=== PATIENT | female | born 1950 | race African-American/Black ===

== ENCOUNTER 2022-10-02 14:34 | Observation (INO) ==
--- NOTE | 2022-10-02 15:47 | DR.UPDATE ---
H&P UPDATE Review Yes Any changes to H&P?: No
[2022-10-02 16:58] VITALS: BMI 25.6
[2022-10-02] MEDS ORDERED: NS 250 ML IV 250 ML IV ONE (17:09)
[2022-10-02 17:40] LABS: BASOPHILS % (AUTO) 0.8 % (0.2-1.0); EOSINOPHILS # (AUTO) 0.2 x10^3/uL (0.0-0.2); EOSINOPHILS % (AUTO) 3.3 % (0.9-2.9); HEMATOCRIT 33.8 % (36.0-47.0); HEMOGLOBIN 11.4 g/dL (12.0-16.0); LYMPHOCYTES # (AUTO) 1.5 X10^3/uL (1.3-2.9); LYMPHOCYTES % (AUTO) 29.2 % (21.0-51.0); MEAN CORPUSCULAR HEMOGLOBIN 27.8 pg (27.0-34.0); MEAN CORPUSCULAR HGB CONC 33.6 g/dL (33.0-35.0); MEAN CORPUSCULAR VOLUME 82.8 fL (80.0-100.0); MEAN PLATELET VOLUME 7.8 fL (7.4-11.0); MONOCYTES # (AUTO) 0.6 x10^3/uL (0.3-0.8); MONOCYTES % (AUTO) 10.9 % (0.0-13.0); NEUTROPHILS # (AUTO) 2.9 x10^3/uL (2.2-4.8); NEUTROPHILS % (AUTO) 55.8 % (42.0-75.0); PLATELET COUNT 222 X10^3/uL (150.0-450.0); RED BLOOD COUNT 4.09 X10^6/uL (3.5-5.4); RED CELL DISTRIBUTION WIDTH 14.9 % (11.6-16.5); WHITE BLOOD COUNT 5.2 X10^3/uL (3.6-10.0)
[2022-10-02] MEDS: LR 1,000 ML IV 1,000 ML IV SCH (17:47)
[2022-10-02] MEDS: ZOSYN VIAL 3.375 GRAMS 3.375 G in NS 100 ML IV 100 ML IV SCH ×2 (17:47→21:04)
[2022-10-02 17:49] LABS: BLOOD UREA NITROGEN 12 mg/dL (7-18); CALCIUM 8.6 mg/dL (8.5-10.1); CARBON DIOXIDE 26.5 mmol/L (21-32); CHLORIDE 103 mmol/L (98-107); CREATININE 0.98 mg/dL (0.55-1.02); GLUCOSE 87 mg/dL (65-99); SODIUM 137 mmol/L (136-145); eGFR NON BLACK RACES 59 (>60)
[2022-10-02] MEDS ORDERED: PROVENTIL NEB TX 0.083% 2.5MG/ 3ML NEB PRN (18:14)
[2022-10-02] MEDS: PERCOCET TAB 5/325 MG PO PRN (19:38)
[2022-10-02] MEDS: ISOSORBIDE DINITRATE PO SCH (21:03)
[2022-10-02] MEDS: LOPRESSOR TAB 25 MG PO SCH (21:04)
[2022-10-02] MEDS: COREG TAB 6.25 MG PO SCH (21:04)
--- NOTE | 2022-10-02 23:45 | OR.IMMED ---
IMMEDIATE POST-OP NOTE Immediate Post-Op Note Pre-Op Diagnosis: no IV access Post-Op Diagnosis: same Procedure: right femoral vein central triple line vein catheter placement Description of Procedure: see operative summary Surgeon/Hide Buffer: Leisa Findings: as above Estimated Blood Loss: minimal Complications: none Progress Notes: continue IV antibiotics
[2022-10-03] MEDS: PERCOCET TAB 5/325 MG PO PRN ×4 (00:01→14:59)
[2022-10-03] MEDS: ZOSYN VIAL 3.375 GRAMS 3.375 G in NS 100 ML IV 100 ML IV SCH ×3 (05:01→21:15)
[2022-10-03] MEDS: LR 1,000 ML IV 1,000 ML IV SCH ×2 (05:01→18:08)
[2022-10-03] MEDS: PROTONIX TAB 40 MG PO SCH (08:28)
[2022-10-03] MEDS: LASIX PO SCH (08:28)
[2022-10-03] MEDS: MOBIC TAB 15 MG PO SCH (08:28)
[2022-10-03] MEDS: PLAVIX PO SCH (08:28)
[2022-10-03] MEDS: LOPRESSOR TAB 25 MG PO SCH ×2 (08:28→21:20)
[2022-10-03] MEDS: LIPITOR TAB 40 MG PO SCH (08:28)
[2022-10-03] MEDS: ASPIRIN EC 81 MG PO SCH (08:28)
[2022-10-03] MEDS: ISOSORBIDE DINITRATE PO SCH ×2 (08:28→21:21)
[2022-10-03] MEDS: COREG TAB 6.25 MG PO SCH ×2 (08:28→21:23)
[2022-10-03] MEDS: LOVENOX INJ 40 MG SYR SC SCH (08:29)
[2022-10-03] MEDS ORDERED: ZOFRAN INJ 4 MG VIAL IVP PRN (11:27)
--- NOTE | 2022-10-03 23:52 | NOTE.SOAP ---
Soap Note Note for Day of Date of Exam: 10/03/22 Subjective Data Subjective Data: HD # 1 for treatment of phlebitis left leg. Objective Data Temperature: 97.6 F Pulse Rate: 62 Respiratory Rate: 18 Blood Pressure: 100/55 O2 Sat by Pulse Oximetry: 97 Objective Data: Redness left leg improved Assessment Assessment: Phlebitis left leg Plan Plan: Continue IV antibiotics
[2022-10-04] MEDS: PERCOCET TAB 5/325 MG PO PRN ×4 (02:54→23:00)
[2022-10-04] MEDS: ZOSYN VIAL 3.375 GRAMS 3.375 G in NS 100 ML IV 100 ML IV SCH ×3 (05:53→21:20)
[2022-10-04 06:11] LABS: BASOPHILS % (AUTO) 0.7 % (0.2-1.0); EOSINOPHILS # (AUTO) 0.2 x10^3/uL (0.0-0.2); HEMOGLOBIN 9.6 g/dL (12.0-16.0); MONOCYTES # (AUTO) 0.6 x10^3/uL (0.3-0.8); NEUTROPHILS # (AUTO) 3.1 x10^3/uL (2.2-4.8)
[2022-10-04 06:19] LABS: EOSINOPHILS % (AUTO) 3.8 % (0.9-2.9); HEMATOCRIT 28.5 % (36.0-47.0); LYMPHOCYTES # (AUTO) 1.3 X10^3/uL (1.3-2.9); LYMPHOCYTES % (AUTO) 24.3 % (21.0-51.0); MEAN CORPUSCULAR HEMOGLOBIN 27.8 pg (27.0-34.0); MEAN CORPUSCULAR HGB CONC 33.6 g/dL (33.0-35.0); MEAN PLATELET VOLUME 7.4 fL (7.4-11.0); MONOCYTES % (AUTO) 12.1 % (0.0-13.0); NEUTROPHILS % (AUTO) 59.1 % (42.0-75.0); PLATELET COUNT 241 X10^3/uL (150.0-450.0); RED BLOOD COUNT 3.44 X10^6/uL (3.5-5.4); RED CELL DISTRIBUTION WIDTH 14.5 % (11.6-16.5); WHITE BLOOD COUNT 5.3 X10^3/uL (3.6-10.0)
[2022-10-04 06:25] LABS: ALANINE AMINOTRANSFERASE 29 Units/L (12-78); ALBUMIN 2.7 g/dL (3.4-5.0); ALKALINE PHOSPHATASE 65 Units/L (46-116); ASPARTATE AMINO TRANSFERASE 28 Units/L (15-37); BLOOD UREA NITROGEN 12 mg/dL (7-18); CALCIUM 8.1 mg/dL (8.5-10.1); CARBON DIOXIDE 27.8 mmol/L (21-32); CHLORIDE 101 mmol/L (98-107); COR CA(FOR HYPOALB) 9.1 mg/dL (8.5-10.1); CREATININE 1.14 mg/dL (0.55-1.02); GLUCOSE 97 mg/dL (65-99); POTASSIUM 3.6 mmol/L (3.5-5.1); SODIUM 135 mmol/L (136-145); TOTAL PROTEIN 6.2 g/dL (6.4-8.2); eGFR NON BLACK RACES 50 (>60)
[2022-10-04] MEDS ORDERED: K-RIDER 10 MEQ/NS 100 ML 10 MEQ/100 ML BAG IV PRN (08:06)
[2022-10-04] MEDS ORDERED: MICRO K EXTEN CAP 10 MEQ PO PRN (08:06)
[2022-10-04] MEDS ORDERED: KLOR-CON PO PRN (08:06)
[2022-10-04] MEDS ORDERED: POTASSIUM CHL 40 MEQ/NS 0.45% 500 ML IV PRN (08:06)
[2022-10-04] MEDS ORDERED: POTASSIUM CHL 60 MEQ/NS 0.45% 500 ML IV PRN (08:06)
[2022-10-04] MEDS ORDERED: POTASSIUM CHLORIDE LIQ 20 MEQ UDC PO PRN (08:06)
[2022-10-04] MEDS: PROTONIX TAB 40 MG PO SCH (09:11)
[2022-10-04] MEDS: PLAVIX PO SCH (09:11)
[2022-10-04] MEDS: ISOSORBIDE DINITRATE PO SCH ×2 (09:12→21:18)
[2022-10-04] MEDS: COREG TAB 6.25 MG PO SCH ×2 (09:12→21:18)
[2022-10-04] MEDS: LIPITOR TAB 40 MG PO SCH (09:13)
[2022-10-04] MEDS: ASPIRIN EC 81 MG PO SCH (09:13)
[2022-10-04] MEDS: LASIX PO SCH (09:13)
[2022-10-04] MEDS: MOBIC TAB 15 MG PO SCH (09:13)
[2022-10-04] MEDS: LOVENOX INJ 40 MG SYR SC SCH (09:14)
[2022-10-04] MEDS: MAGNESIUM SULFATE 1 GRAM/100 mL PREMIX 1 G/100 ML BAG IV PRN ×3 (09:14→12:12)
--- NOTE | 2022-10-04 13:45 | NOTE.SOAP ---
Soap Note Note for Day of Date of Exam: 10/04/22 Subjective Data Subjective Data: Redness of left medial calf phlebitis is resolved. Objective Data Temperature: 98.2 F Pulse Rate: 87 Respiratory Rate: 18 Blood Pressure: 133/63 O2 Sat by Pulse Oximetry: 92 Objective Data: Redness left medial calf resolved. monitor and storage bin tender Assessment Assessment: Phlebitis left medial calf, improved Plan Plan: Continue IV antibiotics
[2022-10-04] MEDS: K-DUR TAB 20 MEQ PO PRN (14:15)
[2022-10-04] MEDS: LR 1,000 ML IV 1,000 ML IV SCH (15:08)
[2022-10-05] MEDS: LR 1,000 ML IV 1,000 ML IV SCH ×5 (02:23→22:50)
[2022-10-05] MEDS: ZOSYN VIAL 3.375 GRAMS 3.375 G in NS 100 ML IV 100 ML IV SCH ×3 (05:34→21:28)
[2022-10-05 05:55] LABS: BASOPHILS % (AUTO) 0.6 % (0.2-1.0); EOSINOPHILS # (AUTO) 0.2 x10^3/uL (0.0-0.2); EOSINOPHILS % (AUTO) 4.8 % (0.9-2.9); HEMATOCRIT 26.7 % (36.0-47.0); HEMOGLOBIN 9.3 g/dL (12.0-16.0); LYMPHOCYTES # (AUTO) 1.4 X10^3/uL (1.3-2.9); LYMPHOCYTES % (AUTO) 28.2 % (21.0-51.0); MEAN CORPUSCULAR HEMOGLOBIN 28.5 pg (27.0-34.0); MEAN CORPUSCULAR HGB CONC 34.7 g/dL (33.0-35.0); MEAN CORPUSCULAR VOLUME 82.3 fL (80.0-100.0); MEAN PLATELET VOLUME 7.3 fL (7.4-11.0); MONOCYTES # (AUTO) 0.5 x10^3/uL (0.3-0.8); MONOCYTES % (AUTO) 10.1 % (0.0-13.0); NEUTROPHILS # (AUTO) 2.8 x10^3/uL (2.2-4.8); NEUTROPHILS % (AUTO) 56.3 % (42.0-75.0); PLATELET COUNT 231 X10^3/uL (150.0-450.0); RED BLOOD COUNT 3.24 X10^6/uL (3.5-5.4); RED CELL DISTRIBUTION WIDTH 14.9 % (11.6-16.5); WHITE BLOOD COUNT 4.9 X10^3/uL (3.6-10.0)
[2022-10-05 06:04] LABS: ALANINE AMINOTRANSFERASE 27 Units/L (12-78); ALBUMIN 2.6 g/dL (3.4-5.0); ALKALINE PHOSPHATASE 67 Units/L (46-116); ASPARTATE AMINO TRANSFERASE 23 Units/L (15-37); BLOOD UREA NITROGEN 11 mg/dL (7-18); CALCIUM 8.1 mg/dL (8.5-10.1); CHLORIDE 101 mmol/L (98-107); COR CA(FOR HYPOALB) 9.2 mg/dL (8.5-10.1); CREATININE 1.11 mg/dL (0.55-1.02); GLUCOSE 83 mg/dL (65-99); POTASSIUM 3.6 mmol/L (3.5-5.1); SODIUM 136 mmol/L (136-145); eGFR NON BLACK RACES 51 (>60)
[2022-10-05] MEDS: PERCOCET TAB 5/325 MG PO PRN ×4 (07:27→22:53)
[2022-10-05] MEDS: K-DUR TAB 20 MEQ PO PRN ×2 (08:58→13:14)
[2022-10-05] MEDS: MOBIC TAB 15 MG PO SCH (08:58)
[2022-10-05] MEDS: LIPITOR TAB 40 MG PO SCH (08:58)
[2022-10-05] MEDS: LOVENOX INJ 40 MG SYR SC SCH (08:58)
[2022-10-05] MEDS: ISOSORBIDE DINITRATE PO SCH ×2 (08:58→21:29)
[2022-10-05] MEDS: LASIX PO SCH (08:58)
[2022-10-05] MEDS: ASPIRIN EC 81 MG PO SCH (08:59)
[2022-10-05] MEDS: COREG TAB 6.25 MG PO SCH ×2 (08:59→21:28)
[2022-10-05] MEDS: PLAVIX PO SCH (08:59)
[2022-10-05] MEDS: PROTONIX TAB 40 MG PO SCH (08:59)
--- NOTE | 2022-10-05 23:50 | NOTE.SOAP ---
Soap Note Note for Day of Date of Exam: 10/05/22 Subjective Data Subjective Data: Continues to improve Objective Data Temperature: 98.2 F Pulse Rate: 75 Respiratory Rate: 18 Blood Pressure: 125/59 O2 Sat by Pulse Oximetry: 97 Objective Data: Redness resolved left medial calf, rotary peel oven tender . Assessment Assessment: Phlebitis left leg , resolving Plan Plan: Continue IV antibiotics
[2022-10-06] MEDS: PERCOCET TAB 5/325 MG PO PRN ×3 (03:39→22:11)
[2022-10-06] MEDS: LR 1,000 ML IV 1,000 ML IV SCH ×2 (04:52→16:42)
[2022-10-06 05:05] LABS: BASOPHILS # (AUTO) 0.1 X10^3/uL (0.0-0.1); EOSINOPHILS # (AUTO) 0.3 x10^3/uL (0.0-0.2); EOSINOPHILS % (AUTO) 5.4 % (0.9-2.9); HEMATOCRIT 27.6 % (36.0-47.0); HEMOGLOBIN 9.4 g/dL (12.0-16.0); LYMPHOCYTES # (AUTO) 1.5 X10^3/uL (1.3-2.9); LYMPHOCYTES % (AUTO) 27.2 % (21.0-51.0); MEAN CORPUSCULAR HGB CONC 34.2 g/dL (33.0-35.0); MEAN CORPUSCULAR VOLUME 81.8 fL (80.0-100.0); MEAN PLATELET VOLUME 7.3 fL (7.4-11.0); MONOCYTES # (AUTO) 0.5 x10^3/uL (0.3-0.8); NEUTROPHILS % (AUTO) 56.4 % (42.0-75.0); PLATELET COUNT 241 X10^3/uL (150.0-450.0); RED BLOOD COUNT 3.37 X10^6/uL (3.5-5.4); RED CELL DISTRIBUTION WIDTH 14.8 % (11.6-16.5); WHITE BLOOD COUNT 5.4 X10^3/uL (3.6-10.0)
[2022-10-06 05:17] LABS: ALANINE AMINOTRANSFERASE 30 Units/L (12-78); ALBUMIN 2.7 g/dL (3.4-5.0); ALKALINE PHOSPHATASE 76 Units/L (46-116); ASPARTATE AMINO TRANSFERASE 26 Units/L (15-37); BLOOD UREA NITROGEN 13 mg/dL (7-18); CALCIUM 8.2 mg/dL (8.5-10.1); CARBON DIOXIDE 29.7 mmol/L (21-32); CHLORIDE 102 mmol/L (98-107); COR CA(FOR HYPOALB) 9.2 mg/dL (8.5-10.1); CREATININE 1.25 mg/dL (0.55-1.02); GLUCOSE 88 mg/dL (65-99); SODIUM 136 mmol/L (136-145); TOTAL PROTEIN 6.2 g/dL (6.4-8.2); eGFR NON BLACK RACES 45 (>60)
[2022-10-06] MEDS: ZOSYN VIAL 3.375 GRAMS 3.375 G in NS 100 ML IV 100 ML IV SCH ×3 (05:38→22:11)
[2022-10-06] MEDS: ISOSORBIDE DINITRATE PO SCH ×2 (08:23→20:21)
[2022-10-06] MEDS: COREG TAB 6.25 MG PO SCH ×2 (08:23→20:21)
[2022-10-06] MEDS: ASPIRIN EC 81 MG PO SCH (08:23)
[2022-10-06] MEDS: LIPITOR TAB 40 MG PO SCH (08:23)
[2022-10-06] MEDS: PROTONIX TAB 40 MG PO SCH (08:23)
[2022-10-06] MEDS: PLAVIX PO SCH (08:24)
[2022-10-06] MEDS: LASIX PO SCH (08:24)
[2022-10-06] MEDS: MOBIC TAB 15 MG PO SCH (08:24)
[2022-10-06] MEDS: LOVENOX INJ 40 MG SYR SC SCH (08:24)
--- NOTE | 2022-10-06 18:40 | NOTE.SOAP ---
Soap Note Note for Day of Date of Exam: 10/06/22 Subjective Data Subjective Data: Continues to improve Objective Data Temperature: 98 F Pulse Rate: 72 Respiratory Rate: 18 Blood Pressure: 149/60 O2 Sat by Pulse Oximetry: 100 Assessment Assessment: Redness resolved left leg. Thrombus of left medila calf GSV with thrombus Plan Plan: d/c tomorrow with po antibiotics and warm compresses.
[2022-10-07] MEDS: LR 1,000 ML IV 1,000 ML IV SCH ×3 (04:47→12:05)
[2022-10-07] MEDS: ZOSYN VIAL 3.375 GRAMS 3.375 G in NS 100 ML IV 100 ML IV SCH ×2 (05:32→13:59)
[2022-10-07 06:02] LABS: BASOPHILS # (AUTO) 0.1 X10^3/uL (0.0-0.1); BASOPHILS % (AUTO) 1.1 % (0.2-1.0); EOSINOPHILS # (AUTO) 0.3 x10^3/uL (0.0-0.2); EOSINOPHILS % (AUTO) 6.2 % (0.9-2.9); HEMATOCRIT 29.1 % (36.0-47.0); HEMOGLOBIN 9.9 g/dL (12.0-16.0); LYMPHOCYTES # (AUTO) 1.4 X10^3/uL (1.3-2.9); LYMPHOCYTES % (AUTO) 25.6 % (21.0-51.0); MEAN CORPUSCULAR HEMOGLOBIN 27.9 pg (27.0-34.0); MEAN CORPUSCULAR VOLUME 82.1 fL (80.0-100.0); MEAN PLATELET VOLUME 7.4 fL (7.4-11.0); MONOCYTES # (AUTO) 0.5 x10^3/uL (0.3-0.8); MONOCYTES % (AUTO) 8.8 % (0.0-13.0); NEUTROPHILS # (AUTO) 3.2 x10^3/uL (2.2-4.8); NEUTROPHILS % (AUTO) 58.3 % (42.0-75.0); PLATELET COUNT 252 X10^3/uL (150.0-450.0); RED BLOOD COUNT 3.55 X10^6/uL (3.5-5.4); RED CELL DISTRIBUTION WIDTH 14.4 % (11.6-16.5); WHITE BLOOD COUNT 5.5 X10^3/uL (3.6-10.0)
[2022-10-07 06:17] LABS: ALANINE AMINOTRANSFERASE 28 Units/L (12-78); ALBUMIN 2.7 g/dL (3.4-5.0); ALKALINE PHOSPHATASE 71 Units/L (46-116); ASPARTATE AMINO TRANSFERASE 24 Units/L (15-37); BLOOD UREA NITROGEN 16 mg/dL (7-18); CALCIUM 8.5 mg/dL (8.5-10.1); CARBON DIOXIDE 29.8 mmol/L (21-32); CHLORIDE 100 mmol/L (98-107); COR CA(FOR HYPOALB) 9.5 mg/dL (8.5-10.1); CREATININE 1.26 mg/dL (0.55-1.02); GLUCOSE 88 mg/dL (65-99); POTASSIUM 3.6 mmol/L (3.5-5.1); SODIUM 136 mmol/L (136-145); TOTAL PROTEIN 6.3 g/dL (6.4-8.2); eGFR NON BLACK RACES 44 (>60)
[2022-10-07] MEDS: LOVENOX INJ 40 MG SYR SC SCH (09:14)
[2022-10-07] MEDS: ASPIRIN EC 81 MG PO SCH (09:15)
[2022-10-07] MEDS: ISOSORBIDE DINITRATE PO SCH (09:15)
[2022-10-07] MEDS: MOBIC TAB 15 MG PO SCH (09:16)
[2022-10-07] MEDS: LASIX PO SCH (09:16)
[2022-10-07] MEDS: LIPITOR TAB 40 MG PO SCH (09:16)
[2022-10-07] MEDS: PLAVIX PO SCH (09:17)
[2022-10-07] MEDS: COREG TAB 6.25 MG PO SCH (09:17)
[2022-10-07] MEDS: K-DUR TAB 20 MEQ PO PRN (09:17)
[2022-10-07] MEDS: PROTONIX TAB 40 MG PO SCH (09:17)
[2022-10-07] MEDS: PERCOCET TAB 5/325 MG PO PRN (10:07)
--- NOTE | 2022-10-07 11:16 | DR.OPNOTE ---
OP NOTE Pre-Op Diagnosis: no IV access Post-Op Diagnosis: mj Procedure Date Date Of Procedure: 10/02/22 Procedure: PROCEDURE :right femoral vein triple lumen catheter placement NARRATIVE :After multiple failed attempts to place a peripheral IV ,including attempts by myself, I decided to place a right femoral vein triple Lumen catheter. The right groin was prepped and draped in sterile fashion. The femoral artery was easily palpated and the skin medial to this infiltrated with 1 % Xylocaine . 16 gauge needle used to puncture the right femoral vein with aspiration of blood. 0.035 inch wire placed. Incision made over the guide wire at the skin edge with a # 11 knife and a dilator placed over the wire into the right femoral vein . Dilator removed and the triple lumen catheter threaded over the guide wire into the right femoral vein . Guide wire removed. All ports were aspirated of blood and flushed with heparinized saline . The catheter secured to the skin with interrupted silk sutures. The patient tolerated this well. Type of Anesthesia: Local (1% Xylocaine) Findings: as above EBL: minimal Complications:: none Needle/Sponge Count:: correct Disposition/Condition: Pt. tolerated procedure without difficulty.
[2022-10-07 12:03] VITALS: BP 106/57
--- NOTE | 2022-10-07 14:30 | W.DIS.FURT ---
Summary of Discharge Discharge Summary of Date Date of Exam: 10/07/22 Admission Date Date of Admission: 10/02/22 Admission Diagnosis Hospital Course: 72 year old female seen by me in the office on October 02. She had phlebitis of the left medial calf which had been unresponsive to p.0. antibiotics . She was admitted and placed on IV antibiotics, bed rest and warm compresses. The redness has resolved. She does have thrombus of a medial calf vein. This should resolve on its own. She will be discharged on clindamycin ,150 mg poq ID, #30 as well as Percocet 5 mg tablets, one every six hours PRN pain. She will follow up with me in one week. Vital Signs: Vital Signs (72 hours) 10/05/22 23:50 10/06/22 18:40 10/04/22 16:00 Temperature 98.2 F 98 F 98.6 F Pulse Rate 75 72 Pulse Rate [Left Radial] 72 Respiratory Rate 18 18 18 Blood Pressure 125/59 149/60 Blood Pressure [Left Arm] 96/53 O2 Sat by Pulse Oximetry 97 100 92 L Oxygen Delivery Method Room Air Oxygen Flow Rate FIO2% 10/04/22 19:05 10/04/22 20:00 10/04/22 23:00 Temperature 98.1 F Pulse Rate Pulse Rate [Left Radial] 80 Respiratory Rate 19 19 Blood Pressure Blood Pressure [Left Arm] 111/57 O2 Sat by Pulse Oximetry 93 L Oxygen Delivery Method Nasal Cannula Nasal Cannula Oxygen Flow Rate 2 FIO2% 10/04/22 21:00 10/05/22 00:00 10/05/22 01:43 Temperature 98.2 F Pulse Rate Pulse Rate [Left Radial] 79 Respiratory Rate 19 Blood Pressure Blood Pressure [Left Arm] 125/63 O2 Sat by Pulse Oximetry 99 Oxygen Delivery Method Nasal Cannula Nasal Cannula Nasal Cannula Oxygen Flow Rate 2 2 FIO2% 28 28 10/05/22 00:00 10/05/22 04:00 10/05/22 07:00 Temperature 98.1 F Pulse Rate Pulse Rate [Left Radial] 71 Respiratory Rate 22 18 Blood Pressure Blood Pressure [Left Arm] 108/55 O2 Sat by Pulse Oximetry 98 Oxygen Delivery Method Nasal Cannula Room Air Oxygen Flow Rate FIO2% 10/05/22 07:27 10/05/22 07:58 10/05/22 07:58 Temperature Pulse Rate Pulse Rate [Left Radial] Respiratory Rate 20 Blood Pressure Blood Pressure [Left Arm] O2 Sat by Pulse Oximetry 95 Oxygen Delivery Method Nasal Cannula Oxygen Flow Rate 2 FIO2% 28 10/05/22 08:00 10/05/22 12:00 10/05/22 13:00 Temperature 98.1 F 98.0 F Pulse Rate Pulse Rate [Left Radial] 75 76 Respiratory Rate 20 20 20 Blood Pressure Blood Pressure [Left Arm] 122/58 130/61 O2 Sat by Pulse Oximetry 95 95 Oxygen Delivery Method Nasal Cannula Nasal Cannula Oxygen Flow Rate FIO2% 10/05/22 16:00 10/05/22 18:03 10/05/22 08:27 Temperature 98.3 F Pulse Rate Pulse Rate [Left Radial] 62 Respiratory Rate 18 18 20 Blood Pressure Blood Pressure [Left Arm] 120/56 O2 Sat by Pulse Oximetry 97 Oxygen Delivery Method Nasal Cannula Oxygen Flow Rate FIO2% 10/05/22 14:00 10/05/22 19:00 10/05/22 19:03 Temperature Pulse Rate Pulse Rate [Left Radial] Respiratory Rate 20 18 Blood Pressure Blood Pressure [Left Arm] O2 Sat by Pulse Oximetry Oxygen Delivery Method Nasal Cannula Oxygen Flow Rate 2 FIO2% 10/05/22 20:00 10/05/22 20:35 10/05/22 22:53 Temperature 98.2 F Pulse Rate Pulse Rate [Left Radial] 75 Respiratory Rate 18 18 Blood Pressure Blood Pressure [Left Arm] 125/59 O2 Sat by Pulse Oximetry 97 Oxygen Delivery Method Nasal Cannula Nasal Cannula Oxygen Flow Rate 2 FIO2% 28 10/06/22 00:00 10/05/22 23:53 10/06/22 03:39 Temperature 97.5 F L Pulse Rate Pulse Rate [Left Radial] 79 Respiratory Rate 20 18 22 Blood Pressure Blood Pressure [Left Arm] 101/55 O2 Sat by Pulse Oximetry 97 Oxygen Delivery Method Nasal Cannula Oxygen Flow Rate FIO2% 10/06/22 04:00 10/06/22 04:39 10/06/22 07:00 Temperature 98.1 F Pulse Rate Pulse Rate [Left Radial] 68 Respiratory Rate 18 20 Blood Pressure Blood Pressure [Left Arm] 122/58 O2 Sat by Pulse Oximetry 96 Oxygen Delivery Method Nasal Cannula Nasal Cannula Oxygen Flow Rate 2 FIO2% 10/06/22 09:26 10/06/22 08:00 10/06/22 12:00 Temperature 98.3 F 97.8 F Pulse Rate Pulse Rate [Left Radial] 60 70 Respiratory Rate 18 18 Blood Pressure Blood Pressure [Left Arm] 137/65 121/59 O2 Sat by Pulse Oximetry 97 96 Oxygen Delivery Method Nasal Cannula Room Air Nasal Cannula Oxygen Flow Rate 2 2 FIO2% 28 10/06/22 16:41 10/06/22 16:00 10/06/22 17:41 Temperature 98 F Pulse Rate Pulse Rate [Left Radial] 72 Respiratory Rate 21 18 21 Blood Pressure Blood Pressure [Left Arm] 149/68 O2 Sat by Pulse Oximetry 100 Oxygen Delivery Method Oxygen Flow Rate FIO2% 10/06/22 19:00 10/06/22 22:11 10/06/22 20:00 Temperature 98.4 F Pulse Rate Pulse Rate [Left Radial] 79 Respiratory Rate 18 18 Blood Pressure Blood Pressure [Left Arm] 102/51 O2 Sat by Pulse Oximetry 98 Oxygen Delivery Method Nasal Cannula Oxygen Flow Rate 2 FIO2% 10/07/22 00:00 10/07/22 04:00 10/06/22 23:11 Temperature 97.8 F 98.1 F Pulse Rate Pulse Rate [Left Radial] 75 70 Respiratory Rate 18 20 18 Blood Pressure Blood Pressure [Left Arm] 98/55 102/54 O2 Sat by Pulse Oximetry 97 95 Oxygen Delivery Method Oxygen Flow Rate FIO2% 10/07/22 08:00 10/07/22 07:00 10/07/22 10:04 Temperature 98.5 F Pulse Rate Pulse Rate [Left Radial] 72 Respiratory Rate 18 Blood Pressure Blood Pressure [Left Arm] 124/61 O2 Sat by Pulse Oximetry 99 Oxygen Delivery Method Nasal Cannula Room Air Oxygen Flow Rate 2 2 FIO2% 28 10/07/22 10:07 10/07/22 11:07 10/07/22 12:00 Temperature 98.0 F Pulse Rate Pulse Rate [Left Radial] 75 Respiratory Rate 18 18 18 Blood Pressure Blood Pressure [Left Arm] 106/57 O2 Sat by Pulse Oximetry 97 Oxygen Delivery Method Oxygen Flow Rate FIO2% Labs: Laboratory Last Values WBC 5.5 X10^3/uL (3.6-10.0) 10/07/22 05:37 RBC 3.55 X10^6/uL (3.5-5.4) 10/07/22 05:37 Hgb 9.9 g/dL (12.0-16.0) L 10/07/22 05:37 Hct 29.1 % (36.0-47.0) L 10/07/22 05:37 MCV 82.1 fL (80.0-100.0) 10/07/22 05:37 MCH 27.9 pg (27.0-34.0) 10/07/22 05:37 MCHC 34.0 g/dL (33.0-35.0) 10/07/22 05:37 RDW 14.4 % (11.6-16.5) 10/07/22 05:37 Plt Count 252 X10^3/uL (150.0-450.0) 10/07/22 05:37 MPV 7.4 fL (7.4-11.0) 10/07/22 05:37 Neut % (Auto) 58.3 % (42.0-75.0) 10/07/22 05:37 Lymph % (Auto) 25.6 % (21.0-51.0) 10/07/22 05:37 [place] % (Auto) 8.8 % (0.0-13.0) 10/07/22 05:37 Eos % (Auto) 6.2 % (0.9-2.9) H 10/07/22 05:37 Baso % (Auto) 1.1 % (0.2-1.0) H 10/07/22 05:37 Neut # (Auto) 3.2 x10^3/uL (2.2-4.8) 10/07/22 05:37 Lymph # (Auto) 1.4 X10^3/uL (1.3-2.9) 10/07/22 05:37 [place] # (Auto) 0.5 x10^3/uL (0.3-0.8) 10/07/22 05:37 Eos # (Auto) 0.3 x10^3/uL (0.0-0.2) H 10/07/22 05:37 Baso # (Auto) 0.1 X10^3/uL (0.0-0.1) 10/07/22 05:37 Absolute Nucleated RBC 0.0 /100WBC 10/07/22 05:37 Sodium 136 mmol/L (136-145) 10/07/22 05:37 Corrected Sodium TNP 10/07/22 05:37 Potassium 3.6 mmol/L (3.5-5.1) 10/07/22 05:37 Chloride 100 mmol/L (98-107) 10/07/22 05:37 Carbon Dioxide 29.8 mmol/L (21-32) 10/07/22 05:37 BUN 16 mg/dL (7-18) 10/07/22 05:37 Creatinine 1.26 mg/dL (0.55-1.02) H 10/07/22 05:37 Est GFR (MDRD) Af Amer 54 (>60) L 10/07/22 05:37 Est GFR (MDRD) Non-Af 44 (>60) L 10/07/22 05:37 Glucose 88 mg/dL (65-99) 10/07/22 05:37 Calcium 8.5 mg/dL (8.5-10.1) 10/07/22 05:37 Corrected Calcium 9.5 mg/dL (8.5-10.1) 10/07/22 05:37 Magnesium 2.1 mg/dL (2.0-2.9) 10/05/22 05:30 Total Bilirubin 0.30 mg/dL (0.2-1.0) 10/07/22 05:37 AST 24 Units/L (15-37) 10/07/22 05:37 ALT 28 Units/L (12-78) 10/07/22 05:37 Alkaline Phosphatase 71 Units/L (46-116) 10/07/22 05:37 Total Protein 6.3 g/dL (6.4-8.2) L 10/07/22 05:37 Albumin 2.7 g/dL (3.4-5.0) L 10/07/22 05:37 Globulin 3.6 g/dL (2.5-4.5) 10/07/22 05:37 Albumin/Globulin Ratio 0.8 Ratio (1.1-2.1) L 10/07/22 05:37 Reason For Visit: LLE PHLEBITIS Discharge Date Discharge Date: 10/07/22 Discharge Diagnosis All Active Problems (Updated 10/07/22 @ 14:19 by Geraldo De La Fuente) Phlebitis and thrombophlebitis of left calf muscular vein (Acute) Plan of Treatment: Continue with present treatment and follow up plan. Pt is to keep follow up appointment as instructed and take medications as ordered. Discharge Medications Discharge Medications: No Known Drug Allergies Allergy (Mild, Verified 10/02/22 19:10) CONTINUE taking the following medications amlodipine 5 mg tablet 0.5 tab PO QDAY 10/02/22 [History] aspirin 81 mg tablet,delayed release 81 mg PO QDAY 10/02/22 [History] carvedilol 6.25 mg tablet 12.5 mg PO BID 10/02/22 [History] cilostazol 100 mg tablet 1 tab PO BID 10/02/22 [History] clopidogrel 75 mg tablet 75 mg PO QDAY 10/02/22 [History] furosemide 40 mg tablet 40 mg PO QDAY 10/02/22 [History] losartan 50 mg tablet 50 mg PO QDAY 10/02/22 [History] mirtazapine 7.5 mg tablet 15 mg PO HS 10/02/22 [History] oxycodone-acetaminophen 5 mg-325 mg tablet 1 tab PO QID PRN 10/02/22 [History] pantoprazole 40 mg tablet,delayed release 40 mg PO BID 10/02/22 [History] rosuvastatin 20 mg tablet 1 tab PO QDAY 10/02/22 [History] spironolactone 25 mg tablet 25 mg PO QDAY 10/02/22 [History] Discharge Disposition Assessment: No acute distress noted at discharge. Discharge Plan Discharge Plan Hospital Course: 72 year old female seen by me in the office on October 02. She had phlebitis of the left medial calf which had been unresponsive to p.0. antibiotics . She was admitted and placed on IV antibiotics, bed rest and warm compresses. The redness has resolved. She does have thrombus of a medial calf vein. This should resolve on its own. She will be discharged on clindamycin ,150 mg poq ID, #30 as well as Percocet 5 mg tablets, one every six hours PRN pain. She will follow up with me in one week. Patient Disposition: HOME, SELF-CARE Condition: Stable Health Concerns: Post Hospitalization: new medications and changes needed to prevent readmission or further decline. Pt educated and given instructions on all concerns. Care Plan Goals: Problem: Pain/Alteration in Comfort Goal: Improve/ Resolve Pain; Achieve Pain Tolerance Instructions: Take pain medications as prescribed. Contact your primary care provider if your pain is unrelieved or worsens. Follow up with primary care provider as directed. Plan of Treatment: Continue with present treatment and follow up plan. Pt is to keep follow up appointment as instructed and take medications as ordered. Assessment: No acute distress noted at discharge. Prescriptions: New clindamycin HCl 150 mg capsule 150 mg PO QID Qty: 30 0RF oxycodone-acetaminophen [Percocet] 5-325 mg tablet 1 tab PO Q6H MDD 4 PRNQty: 30 0RF Continued losartan 50 mg tablet 50 mg PO QDAY Rx Instructions: FreeTextSi Tablet daily; Refills: 1; Provider: Lauryn Smith furosemide 40 mg tablet 40 mg PO QDAY Rx Instructions: FreeTextSi Tablet daily; Refills: 1; Provider: Lauryn Smith cilostazol 100 mg tablet 1 tab PO BID carvedilol 6.25 mg tablet 12.5 mg PO BID Rx Instructions: FreeTextSi (one) Tablet two times daily; Refills: 1; Provider: Lauryn Smith clopidogrel 75 mg tablet 75 mg PO QDAY Rx Instructions: FreeTextSi Tablet daily; Refills: 1; Provider: Lauryn Smith amlodipine 5 mg tablet 0.5 tab PO QDAY Rx Instructions: take 1/2 tablet for 1 wek, then 1 tablet daily has not started, was given today aspirin 81 mg tablet,delayed release (DR/EC) 81 mg PO QDAY Rx Instructions: FreeTextSi Tablet daily; Refills: 1; Provider: Lauryn Smith spironolactone 25 mg tablet 25 mg PO QDAY Rx Instructions: FreeTextSi Tablet daily; Refills: 1; Provider: Lauryn Smith oxycodone-acetaminophen 5-325 mg tablet 1 tab PO QID PRN Rx Instructions: has not started yet, picked up today pantoprazole 40 mg tablet,delayed release (DR/EC) 40 mg PO BID Rx Instructions: FreeTextSi Tablet two times daily; Refills: 1; Provider: Lauryn Smith rosuvastatin 20 mg tablet 1 tab PO QDAY mirtazapine 7.5 mg tablet 15 mg PO HS Rx Instructions: FreeTextSi (one) Tablet at bedtime; Refills: 1; Provider: Lauryn Smith Orders to Discharge Patient Discharge Orders: Discharge (Routine); Ordered 10/07/22 Ordered By: Geraldo De La Fuente Follow ups/Referrals Follow ups/Referrals: HARVINDER PETERS [Primary Care Provider] - 1 WEEK Geraldo De La Fuente [STAFF PHYSICIAN] - 10/15/22 9:30 am Instructions Instructions: Managing Pain Without Opioids, Chronic Obstructive Pulmonary Disease, [id number], Peripheral Vascular Disease, [id number], Managing Your Hypertension Stand Alone Forms: Excuse From Work or School
== END 2022-10-07 15:35 | disposition home or self-care (01) ==
LOC: INTOOBSV 15:54 → MED/SURG 15:54
PROVIDERS: ADMIT Surgery; ATTEND Surgery
DX: K21.9 Gastro-esophageal reflux disease without esophagitis; I10 Essential (primary) hypertension; I87.2 Venous insufficiency (chronic) (peripheral); I80.252 Phlebitis and thrombophlebitis of left calf muscular vein

== ENCOUNTER 2022-11-11 20:15 | Inpatient (IN) ==
[2022-11-11] MEDS: HEPARIN SODIUM IN D5W 25,000 UNITS/500 ML BAG IV PRN (22:50)
[2022-11-12 00:44] VITALS: BMI 26.4
[2022-11-12] MEDS: DILAUDID INJ IVP PRN ×4 (01:32→19:04)
[2022-11-12] MEDS: ZOSYN VIAL 3.375 GRAMS 3.375 G in NS 100 ML IV 100 ML IV SCH ×4 (02:11→21:09)
[2022-11-12] MEDS: LR 1,000 ML IV 1,000 ML IV SCH ×3 (02:11→15:12)
[2022-11-12] MEDS ORDERED: ZOSYN VIAL 3.375 GRAMS IV ONE (05:23)
[2022-11-12] MEDS ORDERED: NS 100 ML IV 100 ML ONE (05:24)
[2022-11-12] MEDS: MOBIC TAB 15 MG PO SCH (08:40)
[2022-11-12] MEDS: PROTONIX TAB 40 MG PO SCH (08:41)
[2022-11-12] MEDS: LIPITOR TAB 40 MG PO SCH (08:41)
[2022-11-12] MEDS: LOPRESSOR TAB 25 MG PO SCH ×2 (08:41→21:08)
[2022-11-12] MEDS: ISOSORBIDE DINITRATE PO SCH ×2 (08:41→21:08)
[2022-11-12] MEDS: LASIX PO SCH (08:41)
[2022-11-12] MEDS: COREG TAB 6.25 MG PO SCH ×2 (08:41→21:07)
[2022-11-12] MEDS: ASPIRIN EC 81 MG PO SCH (08:41)
--- NOTE | 2022-11-12 12:32 | VAS ---
HISTORYBilateral leg edemaSTUDYVENOUS DOPPLER ULTRASOUND LOWER EXTREMITYCOMPARISONNoneTECHNIQUEGrayscal e and color Doppler imaging of the bilateral lower extremity using compression and augmentation techniques.FINDINGSThere is no evidence of DVT within the left lower extremity. There is evidence of complete DVT from the common femoral vein through the mid superficial femoral vein in the right lower extremity. Normal flow is seen within the right popliteal vein and posterior tibial vein.IMPRESSIONThe study is positive for DVT within the right lower extremity from the common femoral vein through the mid superficial femoral vein.Electronically signed by: CHAZ HOFFMAN (Nov 12, 2022 12:30:37)
--- NOTE | 2022-11-12 15:22 | DR.H&P ---
H&P History & Physical for Day of: H&P Date: 11/11/22 Chief Complaint Chief Complaint: One week history of right groin pain and swelling of the right leg. History of congestive heart failure and has had bilateral iliac vein stenting to resolve bilateral iliac vein compression. Had been doing well . These iliac veins were stented in the fall of 2021. Had c/o swelling and pain of left leg in September of 2022 and had venous doppler both legs at hospital in [place], [place] ( [facility] ) which were negative for DVT. She did have phlebitis of the left medial calf and was admitted and treated with IV antibiotics, non- steroidals and warm compresses and this resolved ( discharged 10/15/2022). Known to have bilateral greater saphenous vein insufficiency which has not been addressed yet. She had CT scan at the hospital in [place] which was interpreted as possible clot in the right iliac stent and possible in the left iliac as well. Transferred to [facility] for care , evaluation and heparin drip Allergies Allergies Allergy/AdvReac Type Severity Reaction Status Date / Time No Known Drug Allergies Allergy Mild Verified 10/02/22 19:10 History of Present Illness History of Present Illness: As above Past Medical History Past Medical History: Anxiety, CHF (cardiomyopathy with EF= 35 % ), COPD (and pulmonary fibrosis ), GERD and Hypertension Additional Medical History: Crest syndrome Past Surgical History Surgical History: Hysterectomy and Other (cardia catherization) Family History Family Medical History: Cancer, [place], Coronary Artery Disease and Hypertension Social History Does patient currently use any type of tobacco product: No Have you used tobacco products in the last 12 months: No Type of Tobacco Use: None Does any household member use tobacco: No Alcohol Use: None Drug Use: None Medications Home Medications: Home Medications Medication Instructions Recorded Confirmed Type amlodipine 5 mg tablet 0.5 tab PO QDAY 10/02/22 10/02/22 History aspirin 81 mg tablet,delayed 81 mg PO QDAY 10/02/22 10/02/22 History release carvedilol 6.25 mg tablet 12.5 mg PO BID 10/02/22 10/02/22 History cilostazol 100 mg tablet 1 tab PO BID 10/02/22 11/12/22 History clopidogrel 75 mg tablet 75 mg PO QDAY 10/02/22 11/11/22 History furosemide 40 mg tablet 40 mg PO QDAY 10/02/22 11/12/22 History losartan 50 mg tablet 50 mg PO QDAY 10/02/22 11/11/22 History mirtazapine 7.5 mg tablet 15 mg PO HS 10/02/22 11/11/22 History oxycodone-acetaminophen 5 mg-325 1 tab PO QID PRN 10/02/22 10/02/22 History mg tablet pantoprazole 40 mg tablet,delayed 40 mg PO BID 10/02/22 10/02/22 History release rosuvastatin 20 mg tablet 1 tab PO QDAY 10/02/22 10/02/22 History spironolactone 25 mg tablet 25 mg PO QDAY 10/02/22 11/11/22 History Labs Labs: Laboratory APTT 217.9 SECONDS (22.9-36.5) H* 11/12/22 12:33 PTT Comment - 11/12/22 12:33 Review of Systems Constitutional: See HPI Eyes: No Symptoms Reported ENT: No Symptoms Reported Respiratory: No Symptoms Reported Cardiovascular: No Symptoms Reported Gastrointestinal: No Symptoms Reported Genitourinary: No Symptoms Reported Musculoskeletal: No Symptoms Reported Skin: No Symptoms Reported Neurological: No Symptoms Reported Physical Exam Vital Signs: Temperature 97.9 F Temperature 97.6 F Pulse Rate [Left Brachial] 84 Pulse Rate [Left Brachial] 75 Pulse Rate [Left Brachial] 81 Pulse Rate [Left Brachial] 83 Pulse Rate [Left Brachial] 85 Pulse Rate [Left Brachial] 83 Pulse Rate [Left Brachial] 74 Respiratory Rate 20 Respiratory Rate 17 Respiratory Rate 16 Respiratory Rate 15 Respiratory Rate 15 Respiratory Rate 18 Respiratory Rate 15 Respiratory Rate 19 Respiratory Rate 15 Blood Pressure [Left Arm] 113/60 Blood Pressure [Left Arm] 110/60 Blood Pressure [Left Arm] 101/57 Blood Pressure [Left Arm] 103/59 Blood Pressure [Left Arm] 108/63 Blood Pressure [Left Arm] 128/58 Blood Pressure [Left Arm] 127/64 O2 Sat by Pulse Oximetry 98 O2 Sat by Pulse Oximetry 98 O2 Sat by Pulse Oximetry 98 O2 Sat by Pulse Oximetry 98 O2 Sat by Pulse Oximetry 98 O2 Sat by Pulse Oximetry 98 O2 Sat by Pulse Oximetry 98 11/12/22 11:00 11/12/22 12:00 11/12/22 13:00 Temperature 97.9 F Temperature Source Axillary Pulse Rate [Left Brachial] 81 75 84 Pulse Rhythm [Left Brachial] Regular Regular Regular Pulse Strength [Left Brachial] Normal Normal Normal Respiratory Rate 16 17 20 Respiratory Depth Normal Normal Normal Respiratory Effort Normal Normal Normal Respiratory Pattern Normal Normal Normal O2 Sat by Pulse Oximetry 98 98 98 Oxygen Delivery Method Room Air Room Air Room Air Blood Pressure [Left Arm] 101/57 110/60 113/60 Blood Pressure Mean [Left Arm] 71 76 77 Blood Pressure Source [Left Arm] Automatic Cuff Automatic Cuff Automatic Cuff Oriented: Normal, Time, Person and Place Eyes: Normal Ear: Normal Nose: Normal Throat: Normal Respiratory: Clear Throughout Cardiovascular: Normal : Normal Auscultation: Bowel Sounds: Normal Palpation: Normal Tenderness: Normal Skin: Normal Psychiatric: Normal Mood Description: Calm Affect: Quiet Speech Pattern: Clear Assessment/Plan (1) Compression of vein: Status: Acute Plan: Hx of iliac vein stenting, possible clot of the stents . Admit and place on heparin drip, review pictures of the CT scan, Obtain b/l LE venous dopplers to see if there is DVT of the LE as well. (2) Primary cardiomyopathy: Status: None (3) Chronic obstructive pulmonary disease: Status: None Plan: Home meds (4) Heart disease: Status: None Plan: home meds (5) Hypertension: Status: None Plan: Home meds (6) Peripheral vascular disease: Status: None
[2022-11-12] MEDS: HEPARIN SODIUM IN D5W 25,000 UNITS/500 ML BAG IV PRN (22:27)
--- NOTE | 2022-11-12 23:51 | NOTE.SOAP ---
Soap Note Note for Day of Date of Exam: 11/12/22 Subjective Data Subjective Data: See H and P. Transferred from [facility] ER with CT showing thrombus in right iliac stent and possibly in left iliac vein stent as well, Transferred to [place] and started on heparin drip. Had B/L LE venous doppler showing no DVT of left leg. Has DVT of right common femoral vein and proximal superficial femoral vein. Objective Data Temperature: 99.2 F Pulse Rate: 74 Respiratory Rate: 19 Blood Pressure: 109/59 O2 Sat by Pulse Oximetry: 100 Objective Data: Right leg not increased in swelling. Assessment Assessment: DVT right leg and possibly both right and left iliac vein while on anticoagulation. Plan Plan: Continue heparin drip . Plan left iliac venogram and IVUS , right femoral vein venogram, right iliac venogram and IVUS , probable EKOS catheter and peripheral based thrombolysis.
[2022-11-13] MEDS: DILAUDID INJ IVP PRN ×2 (04:12→20:44)
[2022-11-13] MEDS: LR 1,000 ML IV 1,000 ML IV SCH ×3 (04:12→21:03)
[2022-11-13 05:14] LABS: BASOPHILS # (AUTO) 0.1 X10^3/uL (0.0-0.1); BASOPHILS % (AUTO) 0.8 % (0.2-1.0); EOSINOPHILS # (AUTO) 0.2 x10^3/uL (0.0-0.2); EOSINOPHILS % (AUTO) 2.3 % (0.9-2.9); HEMATOCRIT 30.1 % (36.0-47.0); HEMOGLOBIN 10.3 g/dL (12.0-16.0); LYMPHOCYTES # (AUTO) 1.9 X10^3/uL (1.3-2.9); LYMPHOCYTES % (AUTO) 23.5 % (21.0-51.0); MEAN CORPUSCULAR HEMOGLOBIN 28.7 pg (27.0-34.0); MEAN CORPUSCULAR HGB CONC 34.2 g/dL (33.0-35.0); MEAN CORPUSCULAR VOLUME 83.9 fL (80.0-100.0); MEAN PLATELET VOLUME 7.7 fL (7.4-11.0); MONOCYTES # (AUTO) 0.7 x10^3/uL (0.3-0.8); MONOCYTES % (AUTO) 8.4 % (0.0-13.0); NEUTROPHILS # (AUTO) 5.2 x10^3/uL (2.2-4.8); PLATELET COUNT 224 X10^3/uL (150.0-450.0); RED BLOOD COUNT 3.59 X10^6/uL (3.5-5.4); RED CELL DISTRIBUTION WIDTH 16.8 % (11.6-16.5)
[2022-11-13] MEDS: ZOSYN VIAL 3.375 GRAMS 3.375 G in NS 100 ML IV 100 ML IV SCH ×3 (05:14→21:03)
[2022-11-13 05:27] LABS: BLOOD UREA NITROGEN 14 mg/dL (7-18); CALCIUM 8.1 mg/dL (8.5-10.1); CARBON DIOXIDE 22.8 mmol/L (21-32); CHLORIDE 102 mmol/L (98-107); CREATININE 1.27 mg/dL (0.55-1.02); GLUCOSE 88 mg/dL (65-99); POTASSIUM 3.7 mmol/L (3.5-5.1); SODIUM 137 mmol/L (136-145); eGFR NON BLACK RACES 44 (>60)
[2022-11-13] MEDS: PROTONIX TAB 40 MG PO SCH (10:26)
[2022-11-13] MEDS: COREG TAB 6.25 MG PO SCH ×2 (10:26→20:45)
[2022-11-13] MEDS: LOPRESSOR TAB 25 MG PO SCH ×2 (10:26→20:45)
[2022-11-13] MEDS: LASIX PO SCH (10:27)
[2022-11-13] MEDS: ASPIRIN EC 81 MG PO SCH (10:29)
[2022-11-13] MEDS: MOBIC TAB 15 MG PO SCH (10:29)
[2022-11-13] MEDS: LIPITOR TAB 40 MG PO SCH (10:29)
[2022-11-13] MEDS: ISOSORBIDE DINITRATE PO SCH ×2 (10:29→20:53)
[2022-11-13] MEDS ORDERED: DIPRIVAN VIAL 20 ML ONE ×2 (13:25→16:45)
[2022-11-13] MEDS ORDERED: VERSED ONE (13:25)
[2022-11-13] MEDS ORDERED: FENTANYL VIAL INJ 100 mcg ONE (13:25)
--- NOTE | 2022-11-13 13:57 | EKG ---
Test Reason : Surgery protocol Blood Pressure : */* mmHG Vent. Rate : 79 BPM Atrial Rate : 79 BPM P-R Int : 166 ms QRS Dur : 76 ms QT Int : 398 ms P-R-T Axes : 44 -16 25 degrees QTc Int : 456 ms Poor data quality, interpretation may be adversely affected Normal sinus rhythm Minimal voltage criteria for LVH, may be normal variant ( R in aVL ) Borderline ECG No previous ECGs available Confirmed by eBnjamin Forbes ([id number]) on 11/13/2022 5:38:30 PM Referred By: Confirmed By: Benjamin Forbes
[2022-11-13] MEDS ORDERED: ACTIVASE CATHFLO 12 MG in NS 250 ML IV 228 ML IV ONE (14:30)
[2022-11-13] MEDS ORDERED: NS 500 ML IV 500 ML IV ONE ×2 (14:42→17:09)
[2022-11-13] MEDS ORDERED: HEPARIN SODIUM IN D5W 25,000 UNITS/500 ML BAG ONE ×2 (14:42→17:08)
[2022-11-13] MEDS ORDERED: ACTIVASE CATHFLO ONE ×3 (14:44→17:16)
[2022-11-13] MEDS ORDERED: ANCEF VIAL 1 GRAM ONE (14:56)
[2022-11-13] MEDS ORDERED: NS 1,000 ML IV 1,000 ML ONE (14:57)
[2022-11-13] MEDS ORDERED: NS 100 ML IV 100 ML ONE (14:57)
[2022-11-13] MEDS ORDERED: MARCAINE 0.5% ONE (15:13)
[2022-11-13] MEDS ORDERED: HEPARIN SODIUM IN D5W 75,000 UNITS/1,500 ML BAG ONE (15:14)
[2022-11-13] MEDS ORDERED: KETAMINE HCL ONE (15:39)
[2022-11-13] MEDS ORDERED: HEPARIN SODIUM INJ 5000 UNITS ONE (16:03)
[2022-11-13] MEDS ORDERED: EPHEDRINE SULFATE INJ ONE (16:05)
[2022-11-13] MEDS ORDERED: NS 250 ML IV 250 ML IV ONE (16:55)
[2022-11-13] MEDS ORDERED: HEPARIN SODIUM IN D5W 25,000 UNITS/500 ML BAG IV ONE (17:18)
[2022-11-13] MEDS ORDERED: HEPARIN SODIUM IN D5W 25,000 UNITS/500 ML BAG INTRACATH PRN (17:44)
--- NOTE | 2022-11-13 17:58 | OR.IMMED ---
IMMEDIATE POST-OP NOTE Immediate Post-Op Note Pre-Op Diagnosis: thrombosis right proximal femoral vein and right iliac vein in cluding in stent, possible left iliac vein stent thrombosis Post-Op Diagnosis: thrombosis right femoral vein and right iliac vein including intra-stent, patent veins left leg, narrowing , possible partial thrombosis left proximal femoral vein and possible intrastent thrombosis left ilac vein Procedure: B/L Posterior tibial vein access at both ankles , b/l LE venograms, IVUS right femoral vein and right iliac vein, place B/L EKOS catheters for thrombolysis Description of Procedure: see operative summary Surgeon/Ore Storage Drier: Leisa Findings: as aboe Estimated Blood Loss: < 50 cc Complications: none Progress Notes: Return to ICU Directed EKOS thrombolysis both legs tonight, return to OR tomorrow for f/u venograms/ IVUS and possible balloon angioplasty, possible additional iliac vein stent placement.
[2022-11-13] MEDS: ACTIVASE CATHFLO 12 MG in NS 250 ML IV 228 ML INTRACATH ONE ×10 (18:30→19:21)
[2022-11-13] MEDS: NS 500 ML IV 500 ML IV SCH ×4 (18:39→19:21)
[2022-11-13 20:21] LABS: BASOPHILS % (AUTO) 0.5 % (0.2-1.0); EOSINOPHILS # (AUTO) 0.1 x10^3/uL (0.0-0.2); EOSINOPHILS % (AUTO) 1.4 % (0.9-2.9); HEMATOCRIT 35.6 % (36.0-47.0); HEMOGLOBIN 12.1 g/dL (12.0-16.0); LYMPHOCYTES # (AUTO) 1.4 X10^3/uL (1.3-2.9); LYMPHOCYTES % (AUTO) 15.6 % (21.0-51.0); MEAN CORPUSCULAR HEMOGLOBIN 28.4 pg (27.0-34.0); MEAN CORPUSCULAR HGB CONC 33.9 g/dL (33.0-35.0); MEAN CORPUSCULAR VOLUME 83.8 fL (80.0-100.0); MEAN PLATELET VOLUME 7.2 fL (7.4-11.0); MONOCYTES # (AUTO) 0.6 x10^3/uL (0.3-0.8); NEUTROPHILS # (AUTO) 6.8 x10^3/uL (2.2-4.8); NEUTROPHILS % (AUTO) 75.5 % (42.0-75.0); PLATELET COUNT 244 X10^3/uL (150.0-450.0); RED BLOOD COUNT 4.25 X10^6/uL (3.5-5.4)
[2022-11-14 02:14] LABS: BASOPHILS % (AUTO) 0.4 % (0.2-1.0); EOSINOPHILS # (AUTO) 0.1 x10^3/uL (0.0-0.2); EOSINOPHILS % (AUTO) 1.5 % (0.9-2.9); HEMATOCRIT 30.3 % (36.0-47.0); HEMOGLOBIN 10.3 g/dL (12.0-16.0); LYMPHOCYTES # (AUTO) 1.3 X10^3/uL (1.3-2.9); LYMPHOCYTES % (AUTO) 16.1 % (21.0-51.0); MEAN CORPUSCULAR HEMOGLOBIN 28.3 pg (27.0-34.0); MEAN CORPUSCULAR VOLUME 83.2 fL (80.0-100.0); MEAN PLATELET VOLUME 7.1 fL (7.4-11.0); MONOCYTES # (AUTO) 0.6 x10^3/uL (0.3-0.8); MONOCYTES % (AUTO) 7.7 % (0.0-13.0); NEUTROPHILS % (AUTO) 74.3 % (42.0-75.0); PLATELET COUNT 227 X10^3/uL (150.0-450.0); RED BLOOD COUNT 3.64 X10^6/uL (3.5-5.4); WHITE BLOOD COUNT 8.1 X10^3/uL (3.6-10.0)
[2022-11-14] MEDS: DILAUDID INJ IVP PRN ×8 (02:16→22:04)
[2022-11-14] MEDS: NS 500 ML IV 500 ML IV SCH ×8 (02:16→21:15)
[2022-11-14] MEDS: ACTIVASE CATHFLO 12 MG in NS 250 ML IV 228 ML INTRACATH ONE ×2 (03:59→06:00)
[2022-11-14] MEDS: ZOSYN VIAL 3.375 GRAMS 3.375 G in NS 100 ML IV 100 ML IV SCH ×3 (05:23→21:16)
[2022-11-14] MEDS: LR 1,000 ML IV 1,000 ML IV SCH ×3 (06:00→22:26)
[2022-11-14 06:20] LABS: BASOPHILS # (AUTO) 0.1 X10^3/uL (0.0-0.1); BASOPHILS % (AUTO) 0.8 % (0.2-1.0); EOSINOPHILS # (AUTO) 0.2 x10^3/uL (0.0-0.2); EOSINOPHILS % (AUTO) 2.7 % (0.9-2.9); HEMATOCRIT 29.3 % (36.0-47.0); HEMOGLOBIN 10.1 g/dL (12.0-16.0); LYMPHOCYTES # (AUTO) 1.5 X10^3/uL (1.3-2.9); LYMPHOCYTES % (AUTO) 18.4 % (21.0-51.0); MEAN CORPUSCULAR HEMOGLOBIN 28.5 pg (27.0-34.0); MEAN CORPUSCULAR HGB CONC 34.4 g/dL (33.0-35.0); MEAN PLATELET VOLUME 7.2 fL (7.4-11.0); MONOCYTES # (AUTO) 0.6 x10^3/uL (0.3-0.8); NEUTROPHILS # (AUTO) 5.6 x10^3/uL (2.2-4.8); NEUTROPHILS % (AUTO) 70.1 % (42.0-75.0); PLATELET COUNT 206 X10^3/uL (150.0-450.0); RED BLOOD COUNT 3.53 X10^6/uL (3.5-5.4); RED CELL DISTRIBUTION WIDTH 17.1 % (11.6-16.5)
[2022-11-14 06:36] LABS: BLOOD UREA NITROGEN 11 mg/dL (7-18); CARBON DIOXIDE 21.9 mmol/L (21-32); CHLORIDE 103 mmol/L (98-107); CREATININE 0.98 mg/dL (0.55-1.02); GLUCOSE 88 mg/dL (65-99); POTASSIUM 3.4 mmol/L (3.5-5.1); SODIUM 137 mmol/L (136-145); eGFR NON BLACK RACES 59 (>60)
[2022-11-14] MEDS: LOPRESSOR TAB 25 MG PO SCH ×2 (09:24→21:15)
[2022-11-14] MEDS: COREG TAB 6.25 MG PO SCH ×2 (09:24→21:12)
[2022-11-14] MEDS: PROTONIX TAB 40 MG PO SCH (09:24)
[2022-11-14] MEDS: LASIX PO SCH (09:24)
[2022-11-14] MEDS: ISOSORBIDE DINITRATE PO SCH ×2 (09:30→21:15)
[2022-11-14] MEDS: ASPIRIN EC 81 MG PO SCH (09:30)
[2022-11-14] MEDS: MOBIC TAB 15 MG PO SCH (09:31)
[2022-11-14] MEDS: LIPITOR TAB 40 MG PO SCH (09:31)
[2022-11-14] MEDS ORDERED: VERSED ONE (10:27)
[2022-11-14] MEDS ORDERED: FENTANYL VIAL INJ 100 mcg ONE (10:28)
[2022-11-14] MEDS ORDERED: DIPRIVAN VIAL 20 ML ONE ×2 (10:28→13:02)
[2022-11-14] MEDS ORDERED: PEPCID 20 MG VIAL ONE (10:37)
[2022-11-14] MEDS ORDERED: ZOFRAN INJ 4 MG VIAL ONE (10:37)
[2022-11-14] MEDS ORDERED: NS 100 ML IV 100 ML ONE (11:17)
[2022-11-14] MEDS ORDERED: LR 1,000 ML IV 1,000 ML IV ONE ×2 (11:17→13:23)
[2022-11-14] MEDS ORDERED: ANCEF VIAL 1 GRAM ONE (11:17)
[2022-11-14] MEDS ORDERED: MARCAINE 0.5% ONE (11:31)
[2022-11-14] MEDS ORDERED: HEPARIN SODIUM IN D5W 75,000 UNITS/1,500 ML BAG ONE (11:31)
[2022-11-14] MEDS ORDERED: KETAMINE HCL ONE (11:46)
[2022-11-14] MEDS ORDERED: PRECEDEX INJ VIAL IVP ONE (11:46)
[2022-11-14] MEDS ORDERED: XYLOCAINE 2 % (PLAIN) ONE (11:46)
[2022-11-14] MEDS ORDERED: NEO-SYNEPHRINE INJ ONE (11:59)
[2022-11-14] MEDS ORDERED: OFIRMEV IV 1000 MG VIAL 1,000 MG/100 ML VIAL IV ONE (12:23)
[2022-11-14] MEDS ORDERED: DECADRON INJ ONE (12:23)
[2022-11-14] MEDS ORDERED: HEPARIN SODIUM INJ 5000 UNITS ONE (12:30)
[2022-11-14] MEDS ORDERED: ROBINUL ONE (12:45)
[2022-11-14] MEDS ORDERED: TORADOL 30 MG VIAL ONE (14:29)
[2022-11-14] MEDS ORDERED: PROTAMINE SULFATE 50 MG VIAL ONE (14:30)
--- NOTE | 2022-11-14 15:02 | OR.IMMED ---
IMMEDIATE POST-OP NOTE Immediate Post-Op Note Pre-Op Diagnosis: B/l iliac venous stent thrombosis, thrombus right femoral vein Post-Op Diagnosis: Thrombosis left iliac vein resolved but severe stenosis distal iliac vein / proximal left common femoral vein requiring stent, thrombus right femoral vein resolved, partially thrombosed right iliac vein stent and [place] right proximal iliac vein requiring Angiojet thrombectomy and proximal iliac vein stent placement Description of Procedure: b/l, iliac venograms, stenting left external iliac vein/ proximal left femoral vein, IVUS right iliac vein stent , stenting proximal right iliac vein Surgeon/Engine House Helper: Leisa Findings: see above Estimated Blood Loss: 400 cc Complications: none Discharge Progress Notes: return to ICU , DIET and po Eliquis , d/c tomorrow
[2022-11-14 15:40] LABS: BASOPHILS % (AUTO) 0.3 % (0.2-1.0); EOSINOPHILS # (AUTO) 0.1 x10^3/uL (0.0-0.2); EOSINOPHILS % (AUTO) 0.8 % (0.9-2.9); HEMATOCRIT 30.5 % (36.0-47.0); HEMOGLOBIN 10.3 g/dL (12.0-16.0); LYMPHOCYTES # (AUTO) 0.7 X10^3/uL (1.3-2.9); LYMPHOCYTES % (AUTO) 6.8 % (21.0-51.0); MEAN CORPUSCULAR HEMOGLOBIN 28.5 pg (27.0-34.0); MEAN CORPUSCULAR HGB CONC 33.8 g/dL (33.0-35.0); MEAN CORPUSCULAR VOLUME 84.4 fL (80.0-100.0); MEAN PLATELET VOLUME 7.4 fL (7.4-11.0); MONOCYTES # (AUTO) 0.5 x10^3/uL (0.3-0.8); MONOCYTES % (AUTO) 4.7 % (0.0-13.0); NEUTROPHILS # (AUTO) 9.4 x10^3/uL (2.2-4.8); NEUTROPHILS % (AUTO) 87.4 % (42.0-75.0); PLATELET COUNT 190 X10^3/uL (150.0-450.0); RED BLOOD COUNT 3.61 X10^6/uL (3.5-5.4); RED CELL DISTRIBUTION WIDTH 16.3 % (11.6-16.5); WHITE BLOOD COUNT 10.8 X10^3/uL (3.6-10.0)
[2022-11-14] MEDS: ELIQUIS PO SCH (20:51)
[2022-11-15 00:03] LABS: BASOPHILS % (AUTO) 0.2 % (0.2-1.0); HEMATOCRIT 24.7 % (36.0-47.0); HEMOGLOBIN 8.4 g/dL (12.0-16.0); LYMPHOCYTES # (AUTO) 0.8 X10^3/uL (1.3-2.9); LYMPHOCYTES % (AUTO) 7.3 % (21.0-51.0); MEAN CORPUSCULAR HEMOGLOBIN 28.5 pg (27.0-34.0); MEAN CORPUSCULAR VOLUME 83.6 fL (80.0-100.0); MEAN PLATELET VOLUME 7.3 fL (7.4-11.0); MONOCYTES # (AUTO) 0.6 x10^3/uL (0.3-0.8); MONOCYTES % (AUTO) 5.4 % (0.0-13.0); NEUTROPHILS % (AUTO) 87.1 % (42.0-75.0); PLATELET COUNT 182 X10^3/uL (150.0-450.0); RED BLOOD COUNT 2.95 X10^6/uL (3.5-5.4); RED CELL DISTRIBUTION WIDTH 16.6 % (11.6-16.5); WHITE BLOOD COUNT 11.4 X10^3/uL (3.6-10.0)
[2022-11-15] MEDS: DILAUDID INJ IVP PRN ×3 (04:57→18:42)
[2022-11-15] MEDS: ZOSYN VIAL 3.375 GRAMS 3.375 G in NS 100 ML IV 100 ML IV SCH ×3 (05:44→21:04)
[2022-11-15 06:09] LABS: CALCIUM 7.9 mg/dL (8.5-10.1); CARBON DIOXIDE 24.8 mmol/L (21-32); CREATININE 1.15 mg/dL (0.55-1.02); POTASSIUM 3.8 mmol/L (3.5-5.1)
[2022-11-15 06:15] LABS: BASOPHILS % (AUTO) 0.3 % (0.2-1.0); HEMATOCRIT 20.4 % (36.0-47.0); LYMPHOCYTES # (AUTO) 1.2 X10^3/uL (1.3-2.9); MEAN CORPUSCULAR HEMOGLOBIN 28.4 pg (27.0-34.0); MEAN CORPUSCULAR HGB CONC 34.1 g/dL (33.0-35.0); MEAN CORPUSCULAR VOLUME 83.2 fL (80.0-100.0); MEAN PLATELET VOLUME 7.8 fL (7.4-11.0); MONOCYTES # (AUTO) 1.1 x10^3/uL (0.3-0.8); MONOCYTES % (AUTO) 7.7 % (0.0-13.0); NEUTROPHILS # (AUTO) 11.4 x10^3/uL (2.2-4.8); PLATELET COUNT 215 X10^3/uL (150.0-450.0); RED BLOOD COUNT 2.45 X10^6/uL (3.5-5.4); RED CELL DISTRIBUTION WIDTH 16.6 % (11.6-16.5); WHITE BLOOD COUNT 13.8 X10^3/uL (3.6-10.0)
[2022-11-15] MEDS: MOBIC TAB 15 MG PO SCH (08:53)
[2022-11-15] MEDS: LASIX PO SCH (08:53)
[2022-11-15] MEDS: PROTONIX TAB 40 MG PO SCH (08:53)
[2022-11-15] MEDS: LIPITOR TAB 40 MG PO SCH (08:53)
[2022-11-15] MEDS: ASPIRIN EC 81 MG PO SCH (08:53)
[2022-11-15] MEDS: LOPRESSOR TAB 25 MG PO SCH ×2 (08:53→21:06)
[2022-11-15] MEDS: COREG TAB 6.25 MG PO SCH ×2 (08:53→21:04)
[2022-11-15] MEDS: ISOSORBIDE DINITRATE PO SCH ×2 (08:54→21:04)
[2022-11-15] MEDS: ELIQUIS PO SCH ×2 (08:54→21:05)
[2022-11-15] MEDS: LR 1,000 ML IV 1,000 ML IV SCH ×2 (09:32→15:25)
[2022-11-15] MEDS: NS 500 ML IV 500 ML IV SCH ×2 (11:05→11:06)
[2022-11-15 14:12] LABS: BASOPHILS # (AUTO) 0.1 X10^3/uL (0.0-0.1); BASOPHILS % (AUTO) 0.6 % (0.2-1.0); EOSINOPHILS % (AUTO) 0.3 % (0.9-2.9); HEMATOCRIT 30.1 % (36.0-47.0); LYMPHOCYTES # (AUTO) 1.6 X10^3/uL (1.3-2.9); LYMPHOCYTES % (AUTO) 12.4 % (21.0-51.0); MEAN CORPUSCULAR HEMOGLOBIN 29.5 pg (27.0-34.0); MEAN CORPUSCULAR HGB CONC 34.4 g/dL (33.0-35.0); MEAN CORPUSCULAR VOLUME 85.7 fL (80.0-100.0); MEAN PLATELET VOLUME 7.4 fL (7.4-11.0); MONOCYTES # (AUTO) 1.1 x10^3/uL (0.3-0.8); MONOCYTES % (AUTO) 8.4 % (0.0-13.0); NEUTROPHILS # (AUTO) 10.2 x10^3/uL (2.2-4.8); NEUTROPHILS % (AUTO) 78.3 % (42.0-75.0); PLATELET COUNT 199 X10^3/uL (150.0-450.0); RED BLOOD COUNT 3.51 X10^6/uL (3.5-5.4); RED CELL DISTRIBUTION WIDTH 17.5 % (11.6-16.5)
[2022-11-15 14:18] LABS: HEMOGLOBIN 10.4 g/dL (12.0-16.0)
[2022-11-15 18:00] LABS: BASOPHILS # (AUTO) 0.1 X10^3/uL (0.0-0.1); BASOPHILS % (AUTO) 0.5 % (0.2-1.0); EOSINOPHILS # (AUTO) 0.1 x10^3/uL (0.0-0.2); EOSINOPHILS % (AUTO) 0.5 % (0.9-2.9); HEMATOCRIT 27.4 % (36.0-47.0); HEMOGLOBIN 9.3 g/dL (12.0-16.0); LYMPHOCYTES # (AUTO) 2.2 X10^3/uL (1.3-2.9); LYMPHOCYTES % (AUTO) 15.5 % (21.0-51.0); MEAN CORPUSCULAR HEMOGLOBIN 29.1 pg (27.0-34.0); MEAN CORPUSCULAR HGB CONC 34.1 g/dL (33.0-35.0); MEAN CORPUSCULAR VOLUME 85.4 fL (80.0-100.0); MEAN PLATELET VOLUME 7.2 fL (7.4-11.0); MONOCYTES % (AUTO) 7.1 % (0.0-13.0); NEUTROPHILS # (AUTO) 10.7 x10^3/uL (2.2-4.8); NEUTROPHILS % (AUTO) 76.4 % (42.0-75.0); PLATELET COUNT 209 X10^3/uL (150.0-450.0); RED CELL DISTRIBUTION WIDTH 17.3 % (11.6-16.5)
[2022-11-15] MEDS ORDERED: COLACE CAP 100 MG PO ONE (19:30)
[2022-11-15] MEDS ORDERED: COLACE CAP 100 MG PO SCH (21:00)
[2022-11-16 00:07] LABS: BASOPHILS # (AUTO) 0.1 X10^3/uL (0.0-0.1); BASOPHILS % (AUTO) 0.7 % (0.2-1.0); EOSINOPHILS # (AUTO) 0.1 x10^3/uL (0.0-0.2); EOSINOPHILS % (AUTO) 0.9 % (0.9-2.9); HEMATOCRIT 22.7 % (36.0-47.0); HEMOGLOBIN 7.8 g/dL (12.0-16.0); LYMPHOCYTES # (AUTO) 2.2 X10^3/uL (1.3-2.9); LYMPHOCYTES % (AUTO) 18.1 % (21.0-51.0); MEAN CORPUSCULAR HEMOGLOBIN 29.2 pg (27.0-34.0); MEAN CORPUSCULAR HGB CONC 34.4 g/dL (33.0-35.0); MEAN CORPUSCULAR VOLUME 84.7 fL (80.0-100.0); MEAN PLATELET VOLUME 7.3 fL (7.4-11.0); MONOCYTES # (AUTO) 0.9 x10^3/uL (0.3-0.8); MONOCYTES % (AUTO) 7.2 % (0.0-13.0); NEUTROPHILS # (AUTO) 8.9 x10^3/uL (2.2-4.8); NEUTROPHILS % (AUTO) 73.1 % (42.0-75.0); PLATELET COUNT 201 X10^3/uL (150.0-450.0); RED BLOOD COUNT 2.67 X10^6/uL (3.5-5.4); RED CELL DISTRIBUTION WIDTH 17.2 % (11.6-16.5); WHITE BLOOD COUNT 12.1 X10^3/uL (3.6-10.0)
[2022-11-16] MEDS: LR 1,000 ML IV 1,000 ML IV SCH ×3 (00:22→11:06)
[2022-11-16] MEDS: DILAUDID INJ IVP PRN ×2 (00:27→06:28)
[2022-11-16] MEDS: ZOSYN VIAL 3.375 GRAMS 3.375 G in NS 100 ML IV 100 ML IV SCH (05:11)
[2022-11-16] MEDS: NS 500 ML IV 500 ML IV SCH (05:12)
[2022-11-16 06:11] LABS: HEMOGLOBIN 8.2 g/dL (12.0-16.0); MEAN PLATELET VOLUME 7.4 fL (7.4-11.0); PLATELET COUNT 194 X10^3/uL (150.0-450.0); RED BLOOD COUNT 2.77 X10^6/uL (3.5-5.4)
[2022-11-16 06:16] LABS: BASOPHILS # (AUTO) 0.1 X10^3/uL (0.0-0.1); BASOPHILS % (AUTO) 0.9 % (0.2-1.0); EOSINOPHILS # (AUTO) 0.2 x10^3/uL (0.0-0.2); EOSINOPHILS % (AUTO) 1.5 % (0.9-2.9); HEMATOCRIT 23.5 % (36.0-47.0); LYMPHOCYTES # (AUTO) 2.3 X10^3/uL (1.3-2.9); LYMPHOCYTES % (AUTO) 19.7 % (21.0-51.0); MEAN CORPUSCULAR HEMOGLOBIN 29.7 pg (27.0-34.0); MEAN CORPUSCULAR HGB CONC 35.1 g/dL (33.0-35.0); MEAN CORPUSCULAR VOLUME 84.7 fL (80.0-100.0); MONOCYTES # (AUTO) 0.8 x10^3/uL (0.3-0.8); MONOCYTES % (AUTO) 6.4 % (0.0-13.0); NEUTROPHILS # (AUTO) 8.4 x10^3/uL (2.2-4.8); NEUTROPHILS % (AUTO) 71.5 % (42.0-75.0); RED CELL DISTRIBUTION WIDTH 17.4 % (11.6-16.5); WHITE BLOOD COUNT 11.8 X10^3/uL (3.6-10.0)
[2022-11-16 06:37] LABS: PLATELET MORPHOLOGY COMMENT NORMAL (NORMAL)
[2022-11-16] MEDS: ELIQUIS PO SCH (09:14)
[2022-11-16] MEDS: ASPIRIN EC 81 MG PO SCH (09:14)
[2022-11-16] MEDS: ISOSORBIDE DINITRATE PO SCH (09:14)
[2022-11-16] MEDS: COREG TAB 6.25 MG PO SCH (09:14)
[2022-11-16] MEDS: LIPITOR TAB 40 MG PO SCH (09:14)
[2022-11-16] MEDS: LOPRESSOR TAB 25 MG PO SCH (09:14)
[2022-11-16] MEDS: LASIX PO SCH (09:14)
[2022-11-16] MEDS: MOBIC TAB 15 MG PO SCH (09:14)
[2022-11-16] MEDS: PROTONIX TAB 40 MG PO SCH (09:14)
[2022-11-16] MEDS ORDERED: PERCOCET TAB 5/325 MG PO PRN (09:25)
[2022-11-16 11:40] LABS: BASOPHILS # (AUTO) 0.1 X10^3/uL (0.0-0.1); BASOPHILS % (AUTO) 0.6 % (0.2-1.0); EOSINOPHILS # (AUTO) 0.2 x10^3/uL (0.0-0.2); HEMATOCRIT 23.1 % (36.0-47.0); HEMOGLOBIN 7.8 g/dL (12.0-16.0); LYMPHOCYTES % (AUTO) 25.3 % (21.0-51.0); MEAN CORPUSCULAR HEMOGLOBIN 28.9 pg (27.0-34.0); MEAN CORPUSCULAR HGB CONC 33.8 g/dL (33.0-35.0); MEAN CORPUSCULAR VOLUME 85.4 fL (80.0-100.0); MEAN PLATELET VOLUME 7.2 fL (7.4-11.0); MONOCYTES # (AUTO) 0.8 x10^3/uL (0.3-0.8); NEUTROPHILS # (AUTO) 7.8 x10^3/uL (2.2-4.8); NEUTROPHILS % (AUTO) 65.1 % (42.0-75.0); PLATELET COUNT 208 X10^3/uL (150.0-450.0); RED CELL DISTRIBUTION WIDTH 17.3 % (11.6-16.5); WHITE BLOOD COUNT 11.9 X10^3/uL (3.6-10.0)
[2022-11-16 12:10] VITALS: TEMP 97.9
--- NOTE | 2022-11-16 12:10 | NOTE.SOAP ---
Soap Note Note for Day of Date of Exam: 11/15/22 Subjective Data Subjective Data: Doing well after peripheral thombolysis and peripheral thrombectomy both iliac vein inside of previously placed stents and thrombolysis of DVT right femoral vein.Now on po Eliquis. Hgb this AMwas 7.0 . Received 1 unit PRBCs,post op Hgb= 9.3 Objective Data Temperature: 97.9 F Pulse Rate: 84 Respiratory Rate: 20 Blood Pressure: 107/56 O2 Sat by Pulse Oximetry: 97 Objective Data: 2 + edema both legs. Needle sticks to both groins are no longer bleeding. Assessment Assessment: b/l iliac vein stent thrombosis. S/P EKOS Angiojet and balloon angioplasty. Plan Plan: observe today. DC tomorrow
--- NOTE | 2022-11-16 12:31 | W.DIS.FURT ---
Summary of Discharge Discharge Summary of Date Date of Exam: 11/16/22 Admission Date Date of Admission: 11/12/22 Admission Diagnosis Hospital Course: 72 year old female who several months ago had bilateral iliac vein compression and underwent sequential placement of bilateral iliac vein stents . One month ago had pain in their right leg and ultrasound of that time showed no evidence of DVT. 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 Lower extremity venous Doppler was obtained and showed thrombosis of the right femoral vein. The left femoral vein was okay . Patient was taken to the operative Suite on November 13 and had placement of bilateral EKOS catheters from the posterior tibial veins at the ankle. She underwent peripheral thrombolysis overnight and was returned to the operating Suite the next day. There was still some residual clot In the right iliac stent. Angio jet was performed of this and we balloon dilated the previously placed stent and added an additional stent proximal into the vena cava. The left side was treated with an additional stent placed distally into the common femoral vein. Post-procedure study showed good flow. The patient did receive one unit of blood post-procedure and hemoglobin is 9.3 at discharge. She will be discharged home on anil usual mediactions + Eliquis 5 mg BID and Percocet 5 mg tablets, one every six hours PRN pain. She will follow up with me in 1 to 2 weeks . Vital Signs: Vital Signs (72 hours) 11/16/22 12:10 11/13/22 12:30 11/13/22 12:30 Temperature 97.9 F Pulse Rate 84 70 Respiratory Rate 20 Blood Pressure 107/56 119/59 O2 Sat by Pulse Oximetry 97 100 Oxygen Delivery Method Oxygen Flow Rate FIO2% 11/13/22 13:00 11/13/22 13:00 11/13/22 13:30 Temperature Pulse Rate 73 76 Respiratory Rate Blood Pressure 125/57 O2 Sat by Pulse Oximetry 100 100 Oxygen Delivery Method Oxygen Flow Rate FIO2% 11/13/22 13:30 11/13/22 14:00 11/13/22 14:00 Temperature Pulse Rate 79 Respiratory Rate Blood Pressure 114/55 127/60 O2 Sat by Pulse Oximetry 100 Oxygen Delivery Method Oxygen Flow Rate FIO2% 11/13/22 15:00 11/13/22 14:30 11/13/22 14:30 Temperature 98.3 F Pulse Rate 79 79 Respiratory Rate 18 Blood Pressure 130/71 137/61 O2 Sat by Pulse Oximetry 90 L 100 Oxygen Delivery Method Room Air Oxygen Flow Rate FIO2% 11/13/22 17:43 11/13/22 17:44 11/13/22 17:44 Temperature 98.4 F Pulse Rate 90 88 Respiratory Rate 22 Blood Pressure 125/78 O2 Sat by Pulse Oximetry 100 Oxygen Delivery Method Oxygen Flow Rate FIO2% 11/13/22 18:00 11/13/22 18:00 11/13/22 18:15 Temperature Pulse Rate 82 Respiratory Rate 20 Blood Pressure 124/71 136/71 O2 Sat by Pulse Oximetry 100 Oxygen Delivery Method Oxygen Flow Rate FIO2% 11/13/22 18:15 11/13/22 18:30 11/13/22 18:30 Temperature 98.2 F 98.2 F Pulse Rate 87 86 Respiratory Rate 29 H 43 H Blood Pressure 150/84 O2 Sat by Pulse Oximetry 98 100 Oxygen Delivery Method Oxygen Flow Rate FIO2% 11/13/22 18:45 11/13/22 18:45 11/13/22 19:00 Temperature 97.8 F Pulse Rate 82 Respiratory Rate 31 H Blood Pressure 141/71 146/67 O2 Sat by Pulse Oximetry 99 Oxygen Delivery Method Oxygen Flow Rate FIO2% 11/13/22 19:00 11/13/22 19:00 11/13/22 20:44 Temperature Pulse Rate 87 Respiratory Rate 30 H 15 Blood Pressure O2 Sat by Pulse Oximetry 100 Oxygen Delivery Method Room Air Oxygen Flow Rate FIO2% 11/13/22 20:00 11/13/22 20:00 11/13/22 20:00 Temperature Pulse Rate 99 H 91 H Respiratory Rate 25 H Blood Pressure O2 Sat by Pulse Oximetry 100 100 Oxygen Delivery Method Nasal Cannula Oxygen Flow Rate 2 FIO2% 28 11/13/22 20:42 11/13/22 20:42 11/13/22 21:00 Temperature Pulse Rate 90 93 H Respiratory Rate 27 H 31 H Blood Pressure 111/59 O2 Sat by Pulse Oximetry 100 100 Oxygen Delivery Method Oxygen Flow Rate FIO2% 11/13/22 21:01 11/13/22 21:14 11/13/22 22:00 Temperature Pulse Rate 81 Respiratory Rate 15 20 Blood Pressure 101/70 108/57 O2 Sat by Pulse Oximetry 100 Oxygen Delivery Method Oxygen Flow Rate FIO2% 11/13/22 23:00 11/14/22 00:00 11/14/22 01:00 Temperature 97.6 F Pulse Rate 82 81 80 Respiratory Rate 21 19 19 Blood Pressure 103/55 107/59 112/58 O2 Sat by Pulse Oximetry 100 100 99 Oxygen Delivery Method Oxygen Flow Rate FIO2% 11/14/22 02:00 11/14/22 00:00 11/14/22 00:30 Temperature Pulse Rate 81 Respiratory Rate 20 15 15 Blood Pressure 117/60 O2 Sat by Pulse Oximetry 99 Oxygen Delivery Method Oxygen Flow Rate FIO2% 11/13/22 21:01 11/13/22 22:00 11/13/22 22:00 Temperature Pulse Rate 92 H 81 Respiratory Rate 23 20 Blood Pressure 108/57 O2 Sat by Pulse Oximetry 100 100 Oxygen Delivery Method Oxygen Flow Rate FIO2% 11/13/22 23:00 11/13/22 23:00 11/14/22 00:00 Temperature Pulse Rate 82 Respiratory Rate 21 Blood Pressure 103/55 107/59 O2 Sat by Pulse Oximetry 100 Oxygen Delivery Method Oxygen Flow Rate FIO2% 11/14/22 00:00 11/14/22 01:00 11/14/22 01:00 Temperature Pulse Rate 81 80 Respiratory Rate 19 19 Blood Pressure 112/58 O2 Sat by Pulse Oximetry 99 100 Oxygen Delivery Method Oxygen Flow Rate FIO2% 11/14/22 02:00 11/14/22 02:00 11/14/22 03:00 Temperature Pulse Rate 81 Respiratory Rate 20 Blood Pressure 117/60 114/59 O2 Sat by Pulse Oximetry 99 Oxygen Delivery Method Oxygen Flow Rate FIO2% 11/14/22 03:00 11/14/22 04:04 11/14/22 04:00 Temperature Pulse Rate 83 Respiratory Rate 21 15 Blood Pressure 122/62 O2 Sat by Pulse Oximetry 100 Oxygen Delivery Method Oxygen Flow Rate FIO2% 11/14/22 04:00 11/14/22 04:34 11/14/22 05:00 Temperature Pulse Rate 85 Respiratory Rate 15 Blood Pressure 114/60 O2 Sat by Pulse Oximetry 100 Oxygen Delivery Method Oxygen Flow Rate FIO2% 11/14/22 05:00 11/14/22 06:00 11/14/22 06:00 Temperature Pulse Rate 82 77 Respiratory Rate Blood Pressure 111/60 O2 Sat by Pulse Oximetry 100 100 Oxygen Delivery Method Oxygen Flow Rate FIO2% 11/14/22 06:11 11/14/22 07:00 11/14/22 07:00 Temperature Pulse Rate Respiratory Rate 15 Blood Pressure 111/56 O2 Sat by Pulse Oximetry Oxygen Delivery Method Room Air Oxygen Flow Rate FIO2% 11/14/22 07:00 11/14/22 08:00 11/14/22 08:00 Temperature 97.7 F Pulse Rate 78 76 Respiratory Rate Blood Pressure 113/57 O2 Sat by Pulse Oximetry 100 100 Oxygen Delivery Method Oxygen Flow Rate FIO2% 11/14/22 09:00 11/14/22 09:00 11/14/22 09:23 Temperature Pulse Rate 75 Respiratory Rate 15 Blood Pressure 123/61 O2 Sat by Pulse Oximetry 100 Oxygen Delivery Method Oxygen Flow Rate FIO2% 11/14/22 10:00 11/14/22 10:00 11/14/22 06:41 Temperature Pulse Rate 81 Respiratory Rate 18 Blood Pressure 113/61 O2 Sat by Pulse Oximetry 100 Oxygen Delivery Method Oxygen Flow Rate FIO2% 11/14/22 09:53 11/14/22 11:00 11/14/22 11:00 Temperature Pulse Rate 80 Respiratory Rate 19 Blood Pressure 116/65 O2 Sat by Pulse Oximetry 100 Oxygen Delivery Method Oxygen Flow Rate FIO2% 11/14/22 11:28 11/14/22 14:29 11/14/22 14:44 Temperature 98.4 F Pulse Rate 83 78 Respiratory Rate 20 19 Blood Pressure 114/71 O2 Sat by Pulse Oximetry 94 L 100 Oxygen Delivery Method Nasal Cannula Oxygen Flow Rate FIO2% 11/14/22 14:46 11/14/22 14:46 11/14/22 15:00 Temperature Pulse Rate 76 Respiratory Rate 18 Blood Pressure 151/70 154/68 O2 Sat by Pulse Oximetry 100 Oxygen Delivery Method Oxygen Flow Rate FIO2% 11/14/22 15:00 11/14/22 14:59 11/14/22 15:15 Temperature Pulse Rate 73 Respiratory Rate 17 19 Blood Pressure 147/71 O2 Sat by Pulse Oximetry 100 Oxygen Delivery Method Oxygen Flow Rate FIO2% 11/14/22 15:15 11/14/22 15:41 11/14/22 16:11 Temperature 98.8 F Pulse Rate 76 Respiratory Rate 19 19 19 Blood Pressure O2 Sat by Pulse Oximetry 100 Oxygen Delivery Method Oxygen Flow Rate FIO2% 11/14/22 15:30 11/14/22 15:30 11/14/22 15:45 Temperature 98.2 F 98.5 F Pulse Rate 76 63 Respiratory Rate 20 15 Blood Pressure 147/73 O2 Sat by Pulse Oximetry 100 100 Oxygen Delivery Method Oxygen Flow Rate FIO2% 11/14/22 15:45 11/14/22 16:00 11/14/22 16:00 Temperature 98.6 F Pulse Rate 63 Respiratory Rate 14 Blood Pressure 141/67 139/65 O2 Sat by Pulse Oximetry 100 Oxygen Delivery Method Oxygen Flow Rate FIO2% 11/14/22 16:15 11/14/22 16:15 11/14/22 16:30 Temperature 98.8 F Pulse Rate 62 Respiratory Rate 14 Blood Pressure 145/70 146/71 O2 Sat by Pulse Oximetry 100 Oxygen Delivery Method Oxygen Flow Rate FIO2% 11/14/22 16:30 11/14/22 16:45 11/14/22 16:45 Temperature Pulse Rate 63 60 Respiratory Rate 14 15 Blood Pressure 143/65 O2 Sat by Pulse Oximetry 100 100 Oxygen Delivery Method Oxygen Flow Rate FIO2% 11/14/22 17:00 11/14/22 17:00 11/14/22 17:15 Temperature Pulse Rate 64 Respiratory Rate 15 Blood Pressure 132/63 132/65 O2 Sat by Pulse Oximetry 99 Oxygen Delivery Method Oxygen Flow Rate FIO2% 11/14/22 17:15 11/14/22 17:30 11/14/22 17:30 Temperature Pulse Rate 61 61 Respiratory Rate 15 15 Blood Pressure 131/64 O2 Sat by Pulse Oximetry 100 100 Oxygen Delivery Method Oxygen Flow Rate FIO2% 11/14/22 17:45 11/14/22 17:45 11/14/22 18:00 Temperature Pulse Rate 78 Respiratory Rate 14 Blood Pressure 125/60 121/60 O2 Sat by Pulse Oximetry 99 Oxygen Delivery Method Oxygen Flow Rate FIO2% 11/14/22 18:00 11/14/22 19:13 11/14/22 18:15 Temperature Pulse Rate 79 Respiratory Rate 20 19 Blood Pressure 119/58 O2 Sat by Pulse Oximetry 99 Oxygen Delivery Method Oxygen Flow Rate FIO2% 11/14/22 18:15 11/14/22 18:30 11/14/22 18:30 Temperature Pulse Rate 80 79 Respiratory Rate 23 18 Blood Pressure 109/56 O2 Sat by Pulse Oximetry 98 97 Oxygen Delivery Method Oxygen Flow Rate FIO2% 11/14/22 18:45 11/14/22 18:45 11/14/22 19:00 Temperature Pulse Rate 68 Respiratory Rate 19 Blood Pressure 104/59 103/55 O2 Sat by Pulse Oximetry 98 Oxygen Delivery Method Oxygen Flow Rate FIO2% 11/14/22 19:00 11/14/22 19:15 11/14/22 19:15 Temperature Pulse Rate 71 71 Respiratory Rate 19 16 Blood Pressure 100/55 O2 Sat by Pulse Oximetry 98 100 Oxygen Delivery Method Oxygen Flow Rate FIO2% 11/14/22 19:43 11/14/22 19:30 11/14/22 19:30 Temperature Pulse Rate 73 Respiratory Rate 19 16 Blood Pressure 101/56 O2 Sat by Pulse Oximetry 100 Oxygen Delivery Method Oxygen Flow Rate FIO2% 11/14/22 19:45 11/14/22 19:45 11/14/22 20:00 Temperature Pulse Rate 83 Respiratory Rate 18 Blood Pressure 95/50 104/53 O2 Sat by Pulse Oximetry 96 Oxygen Delivery Method Oxygen Flow Rate FIO2% 11/14/22 20:00 11/14/22 19:00 11/14/22 20:15 Temperature Pulse Rate 70 Respiratory Rate 15 Blood Pressure 105/55 O2 Sat by Pulse Oximetry 98 Oxygen Delivery Method Nasal Cannula Oxygen Flow Rate 2 FIO2% 11/14/22 20:15 11/14/22 20:30 11/14/22 20:30 Temperature Pulse Rate 66 68 Respiratory Rate 15 15 Blood Pressure 109/55 O2 Sat by Pulse Oximetry 100 100 Oxygen Delivery Method Oxygen Flow Rate FIO2% 11/14/22 21:00 11/14/22 21:01 11/14/22 21:01 Temperature 97.8 F Pulse Rate 83 92 H Respiratory Rate 19 18 Blood Pressure 95/79 95/79 O2 Sat by Pulse Oximetry 98 85 L Oxygen Delivery Method Oxygen Flow Rate FIO2% 11/14/22 22:04 11/14/22 21:30 11/14/22 21:30 Temperature Pulse Rate 66 Respiratory Rate 19 18 Blood Pressure 114/56 O2 Sat by Pulse Oximetry 100 Oxygen Delivery Method Oxygen Flow Rate FIO2% 11/14/22 22:00 11/14/22 22:00 11/14/22 22:34 Temperature Pulse Rate 75 Respiratory Rate 21 19 Blood Pressure 117/56 O2 Sat by Pulse Oximetry 99 Oxygen Delivery Method Oxygen Flow Rate FIO2% 11/14/22 22:30 11/14/22 22:30 11/14/22 23:00 Temperature Pulse Rate 68 Respiratory Rate 16 Blood Pressure 113/56 117/56 O2 Sat by Pulse Oximetry 99 Oxygen Delivery Method Oxygen Flow Rate FIO2% 11/14/22 23:00 11/14/22 23:30 11/14/22 23:30 Temperature Pulse Rate 74 71 Respiratory Rate 15 15 Blood Pressure 120/56 O2 Sat by Pulse Oximetry 100 100 Oxygen Delivery Method Oxygen Flow Rate FIO2% 11/15/22 00:00 11/15/22 00:00 11/15/22 00:00 Temperature 98.8 F Pulse Rate 67 Respiratory Rate 15 Blood Pressure 120/58 120/58 O2 Sat by Pulse Oximetry 99 Oxygen Delivery Method Oxygen Flow Rate FIO2% 11/15/22 00:00 11/15/22 00:30 11/15/22 00:30 Temperature Pulse Rate 67 67 Respiratory Rate 15 15 Blood Pressure 111/57 O2 Sat by Pulse Oximetry 99 100 Oxygen Delivery Method Oxygen Flow Rate FIO2% 11/15/22 01:00 11/15/22 01:00 11/15/22 01:30 Temperature Pulse Rate 62 65 Respiratory Rate 15 16 Blood Pressure 125/61 O2 Sat by Pulse Oximetry 100 100 Oxygen Delivery Method Oxygen Flow Rate FIO2% 11/15/22 01:30 11/15/22 02:00 11/15/22 02:00 Temperature Pulse Rate 66 Respiratory Rate 16 Blood Pressure 108/58 129/61 O2 Sat by Pulse Oximetry 100 Oxygen Delivery Method Oxygen Flow Rate FIO2% 11/15/22 03:00 11/15/22 02:30 11/15/22 02:30 Temperature Pulse Rate 66 65 Respiratory Rate 16 16 Blood Pressure 114/57 O2 Sat by Pulse Oximetry 100 100 Oxygen Delivery Method Oxygen Flow Rate FIO2% 11/15/22 03:00 11/15/22 03:00 11/15/22 03:30 Temperature Pulse Rate 71 70 Respiratory Rate 19 18 Blood Pressure 127/62 O2 Sat by Pulse Oximetry 100 100 Oxygen Delivery Method Oxygen Flow Rate FIO2% 11/15/22 03:30 11/15/22 04:00 11/15/22 04:00 Temperature 98.5 F Pulse Rate 72 Respiratory Rate 18 Blood Pressure 129/60 119/59 O2 Sat by Pulse Oximetry 100 Oxygen Delivery Method Oxygen Flow Rate FIO2% 11/15/22 04:57 11/15/22 04:30 11/15/22 04:30 Temperature Pulse Rate 75 Respiratory Rate 19 18 Blood Pressure 122/59 O2 Sat by Pulse Oximetry 100 Oxygen Delivery Method Oxygen Flow Rate FIO2% 11/15/22 05:00 11/15/22 05:00 11/15/22 05:27 Temperature Pulse Rate 72 Respiratory Rate 15 19 Blood Pressure 105/58 O2 Sat by Pulse Oximetry 100 Oxygen Delivery Method Oxygen Flow Rate FIO2% 11/15/22 05:30 11/15/22 05:30 11/15/22 06:00 Temperature Pulse Rate 71 Respiratory Rate 18 Blood Pressure 106/55 107/54 O2 Sat by Pulse Oximetry 100 Oxygen Delivery Method Oxygen Flow Rate FIO2% 11/15/22 06:00 11/15/22 07:00 11/15/22 06:30 Temperature Pulse Rate 79 Respiratory Rate 16 Blood Pressure 115/57 O2 Sat by Pulse Oximetry 100 Oxygen Delivery Method Nasal Cannula Oxygen Flow Rate 2 FIO2% 11/15/22 06:30 11/15/22 07:00 11/15/22 07:00 Temperature Pulse Rate 76 76 Respiratory Rate 16 16 Blood Pressure 108/54 O2 Sat by Pulse Oximetry 100 100 Oxygen Delivery Method Oxygen Flow Rate FIO2% 11/15/22 07:30 11/15/22 07:30 11/15/22 08:00 Temperature 98.4 F Pulse Rate 75 Respiratory Rate 17 Blood Pressure 115/58 114/58 O2 Sat by Pulse Oximetry 100 Oxygen Delivery Method Oxygen Flow Rate FIO2% 11/15/22 08:00 11/15/22 08:30 11/15/22 08:30 Temperature Pulse Rate 89 84 Respiratory Rate 18 19 Blood Pressure 115/55 O2 Sat by Pulse Oximetry 99 100 Oxygen Delivery Method Oxygen Flow Rate FIO2% 11/15/22 09:00 11/15/22 09:00 11/15/22 09:28 Temperature Pulse Rate 90 Respiratory Rate 22 Blood Pressure 120/56 114/59 O2 Sat by Pulse Oximetry 100 Oxygen Delivery Method Oxygen Flow Rate FIO2% 11/15/22 09:28 11/15/22 09:29 11/15/22 09:30 Temperature Pulse Rate 92 H 92 H Respiratory Rate 22 23 Blood Pressure 117/58 O2 Sat by Pulse Oximetry 100 100 Oxygen Delivery Method Oxygen Flow Rate FIO2% 11/15/22 09:30 11/15/22 09:45 11/15/22 09:45 Temperature Pulse Rate 91 H 85 Respiratory Rate 20 19 Blood Pressure 109/56 O2 Sat by Pulse Oximetry 100 100 Oxygen Delivery Method Oxygen Flow Rate FIO2% 11/15/22 10:00 11/15/22 10:00 11/15/22 10:15 Temperature Pulse Rate 81 Respiratory Rate 21 Blood Pressure 114/59 110/56 O2 Sat by Pulse Oximetry 100 Oxygen Delivery Method Oxygen Flow Rate FIO2% 11/15/22 10:15 11/15/22 10:30 11/15/22 10:30 Temperature Pulse Rate 78 76 Respiratory Rate 19 18 Blood Pressure 105/58 O2 Sat by Pulse Oximetry 100 100 Oxygen Delivery Method Oxygen Flow Rate FIO2% 11/15/22 10:45 11/15/22 10:45 11/15/22 11:00 Temperature Pulse Rate 75 Respiratory Rate 19 Blood Pressure 113/58 106/54 O2 Sat by Pulse Oximetry 100 Oxygen Delivery Method Oxygen Flow Rate FIO2% 11/15/22 11:00 11/15/22 11:15 11/15/22 11:15 Temperature Pulse Rate 84 79 Respiratory Rate 17 20 Blood Pressure 105/52 O2 Sat by Pulse Oximetry 100 100 Oxygen Delivery Method Oxygen Flow Rate FIO2% 11/15/22 11:30 11/15/22 11:30 11/15/22 11:45 Temperature Pulse Rate 77 77 Respiratory Rate 19 19 Blood Pressure 108/55 O2 Sat by Pulse Oximetry 100 100 Oxygen Delivery Method Oxygen Flow Rate FIO2% 11/15/22 11:45 11/15/22 12:00 11/15/22 12:00 Temperature 98.5 F Pulse Rate 81 Respiratory Rate 20 Blood Pressure 111/55 112/55 O2 Sat by Pulse Oximetry 100 Oxygen Delivery Method Oxygen Flow Rate FIO2% 11/15/22 12:15 11/15/22 12:15 11/15/22 12:30 Temperature Pulse Rate 83 76 Respiratory Rate 21 21 Blood Pressure 111/58 O2 Sat by Pulse Oximetry 100 100 Oxygen Delivery Method Oxygen Flow Rate FIO2% 11/15/22 12:30 11/15/22 12:45 11/15/22 12:45 Temperature Pulse Rate 81 Respiratory Rate 20 Blood Pressure 120/58 113/54 O2 Sat by Pulse Oximetry 100 Oxygen Delivery Method Oxygen Flow Rate FIO2% 11/15/22 12:53 11/15/22 12:53 11/15/22 13:14 Temperature Pulse Rate 84 Respiratory Rate 20 18 Blood Pressure 114/56 O2 Sat by Pulse Oximetry 100 Oxygen Delivery Method Oxygen Flow Rate FIO2% 11/15/22 13:00 11/15/22 13:00 11/15/22 13:15 Temperature Pulse Rate 84 Respiratory Rate 22 Blood Pressure 119/57 113/57 O2 Sat by Pulse Oximetry 100 Oxygen Delivery Method Oxygen Flow Rate FIO2% 11/15/22 13:15 11/15/22 13:30 11/15/22 13:30 Temperature Pulse Rate 84 89 Respiratory Rate 20 19 Blood Pressure 122/68 O2 Sat by Pulse Oximetry 99 99 Oxygen Delivery Method Oxygen Flow Rate FIO2% 11/15/22 14:00 11/15/22 14:00 11/15/22 13:44 Temperature Pulse Rate 90 Respiratory Rate 22 19 Blood Pressure 106/55 O2 Sat by Pulse Oximetry 100 Oxygen Delivery Method Oxygen Flow Rate FIO2% 11/15/22 14:30 11/15/22 14:30 11/15/22 15:00 Temperature Pulse Rate 87 Respiratory Rate 23 Blood Pressure 115/58 114/63 O2 Sat by Pulse Oximetry 100 Oxygen Delivery Method Oxygen Flow Rate FIO2% 11/15/22 15:00 11/15/22 15:30 11/15/22 15:30 Temperature Pulse Rate 90 91 H Respiratory Rate 17 22 Blood Pressure 104/55 O2 Sat by Pulse Oximetry 100 100 Oxygen Delivery Method Oxygen Flow Rate FIO2% 11/15/22 16:00 11/15/22 16:00 11/15/22 17:00 Temperature Pulse Rate 90 92 H Respiratory Rate 22 14 Blood Pressure 112/58 O2 Sat by Pulse Oximetry 100 99 Oxygen Delivery Method Oxygen Flow Rate FIO2% 11/15/22 17:14 11/15/22 17:14 11/15/22 17:30 Temperature Pulse Rate 86 86 Respiratory Rate 21 21 Blood Pressure 104/53 O2 Sat by Pulse Oximetry 98 98 Oxygen Delivery Method Oxygen Flow Rate FIO2% 11/15/22 17:30 11/15/22 17:59 11/15/22 18:00 Temperature Pulse Rate 85 Respiratory Rate 23 Blood Pressure 103/57 103/55 O2 Sat by Pulse Oximetry 98 Oxygen Delivery Method Oxygen Flow Rate FIO2% 11/15/22 18:42 11/15/22 19:00 11/15/22 20:00 Temperature 97.9 F Pulse Rate 84 84 Respiratory Rate 18 14 20 Blood Pressure 114/57 107/56 O2 Sat by Pulse Oximetry 95 97 Oxygen Delivery Method Nasal Cannula Oxygen Flow Rate 2 FIO2% 11/15/22 19:12 11/16/22 00:27 11/15/22 21:00 Temperature Pulse Rate 82 Respiratory Rate 18 22 19 Blood Pressure 110/57 O2 Sat by Pulse Oximetry 95 Oxygen Delivery Method Nasal Cannula Oxygen Flow Rate 2 FIO2% 11/15/22 19:00 11/15/22 22:00 11/15/22 23:00 Temperature 98.1 F Pulse Rate 81 86 Respiratory Rate 16 18 Blood Pressure 108/55 122/61 O2 Sat by Pulse Oximetry 94 L 95 Oxygen Delivery Method Nasal Cannula Nasal Cannula Nasal Cannula Oxygen Flow Rate 2 2 2 FIO2% 11/16/22 00:00 11/16/22 01:00 11/14/22 21:10 Temperature Pulse Rate 83 78 Respiratory Rate 19 17 Blood Pressure 107/59 108/59 O2 Sat by Pulse Oximetry 97 96 Oxygen Delivery Method Nasal Cannula Nasal Cannula Nasal Cannula Oxygen Flow Rate 2 2 2 FIO2% 28 11/15/22 20:55 11/16/22 00:57 11/16/22 02:00 Temperature Pulse Rate 78 Respiratory Rate 20 17 Blood Pressure 105/58 O2 Sat by Pulse Oximetry 95 Oxygen Delivery Method Nasal Cannula Nasal Cannula Oxygen Flow Rate 2 2 FIO2% 28 11/16/22 03:00 11/16/22 04:00 11/16/22 05:00 Temperature Pulse Rate 81 78 79 Respiratory Rate 19 18 20 Blood Pressure 110/55 116/55 112/60 O2 Sat by Pulse Oximetry 94 L 94 L 94 L Oxygen Delivery Method Nasal Cannula Nasal Cannula Nasal Cannula Oxygen Flow Rate 2 2 2 FIO2% 11/16/22 06:28 11/16/22 06:00 11/16/22 06:58 Temperature Pulse Rate 75 Respiratory Rate 18 17 18 Blood Pressure 131/60 O2 Sat by Pulse Oximetry 95 Oxygen Delivery Method Nasal Cannula Oxygen Flow Rate 2 FIO2% 11/16/22 07:00 11/16/22 07:00 11/16/22 08:00 Temperature 98.2 F Pulse Rate 76 84 Respiratory Rate 18 18 Blood Pressure 125/59 111/59 O2 Sat by Pulse Oximetry 99 99 Oxygen Delivery Method Nasal Cannula Nasal Cannula Nasal Cannula Oxygen Flow Rate 2 2 2 FIO2% 11/16/22 09:00 11/16/22 09:46 11/16/22 09:00 Temperature Pulse Rate 86 Respiratory Rate 20 20 Blood Pressure 125/60 O2 Sat by Pulse Oximetry 100 Oxygen Delivery Method Nasal Cannula Room Air Oxygen Flow Rate 2 FIO2% 11/16/22 10:00 11/16/22 11:00 11/16/22 12:00 Temperature 97.5 F L Pulse Rate 74 77 73 Respiratory Rate 20 22 22 Blood Pressure 101/57 109/55 107/53 O2 Sat by Pulse Oximetry 97 97 97 Oxygen Delivery Method Nasal Cannula Nasal Cannula Nasal Cannula Oxygen Flow Rate 2 2 2 FIO2% Labs: Laboratory Last Values WBC 11.9 X10^3/uL (3.6-10.0) H 11/16/22 11:20 RBC 2.70 X10^6/uL (3.5-5.4) L 11/16/22 11:20 Hgb 7.8 g/dL (12.0-16.0) L 11/16/22 11:20 Hct 23.1 % (36.0-47.0) L 11/16/22 11:20 MCV 85.4 fL (80.0-100.0) 11/16/22 11:20 MCH 28.9 pg (27.0-34.0) 11/16/22 11:20 MCHC 33.8 g/dL (33.0-35.0) 11/16/22 11:20 RDW 17.3 % (11.6-16.5) H 11/16/22 11:20 Plt Count 208 X10^3/uL (150.0-450.0) 11/16/22 11:20 Plt Count Comment Adequate (ADEQUATE) 11/16/22 05:45 MPV 7.2 fL (7.4-11.0) L 11/16/22 11:20 Neut % (Auto) 65.1 % (42.0-75.0) 11/16/22 11:20 Lymph % (Auto) 25.3 % (21.0-51.0) 11/16/22 11:20 Dickey % (Auto) 7.0 % (0.0-13.0) 11/16/22 11:20 Eos % (Auto) 2.0 % (0.9-2.9) 11/16/22 11:20 Baso % (Auto) 0.6 % (0.2-1.0) 11/16/22 11:20 Neut # (Auto) 7.8 x10^3/uL (2.2-4.8) H 11/16/22 11:20 Lymph # (Auto) 3.0 X10^3/uL (1.3-2.9) H 11/16/22 11:20 Dickey # (Auto) 0.8 x10^3/uL (0.3-0.8) 11/16/22 11:20 Eos # (Auto) 0.2 x10^3/uL (0.0-0.2) 11/16/22 11:20 Baso # (Auto) 0.1 X10^3/uL (0.0-0.1) 11/16/22 11:20 Absolute Nucleated RBC 0.0 /100WBC 11/16/22 11:20 Total Counted 100 11/16/22 05:45 Neutrophils % (Manual) 76 % (39-76) 11/16/22 05:45 Lymphocytes % (Manual) 18 % (13-43) 11/16/22 05:45 Monocytes % (Manual) 5 % (4-9) 11/16/22 05:45 Eosinophils % (Manual) 1 % (0-6) 11/16/22 05:45 Plt Morphology Comment Normal (NORMAL) 11/16/22 05:45 RBC Morphology Normal (NORMAL) 11/16/22 05:45 APTT 35.3 SECONDS (22.9-36.5) 11/16/22 11:32 PTT Comment - 11/16/22 11:32 Fibrinogen 553 mg/dL (239-489) H 11/16/22 11:32 Sodium 136 mmol/L (136-145) 11/15/22 05:48 Corrected Sodium 137 mmol/L (136-145) 11/15/22 05:48 Potassium 3.8 mmol/L (3.5-5.1) 11/15/22 05:48 Chloride 103 mmol/L (98-107) 11/15/22 05:48 Carbon Dioxide 24.8 mmol/L (21-32) 11/15/22 05:48 BUN 11 mg/dL (7-18) 11/15/22 05:48 Creatinine 1.15 mg/dL (0.55-1.02) H 11/15/22 05:48 Est GFR (MDRD) Af Amer 60 (>60) 11/15/22 05:48 Est GFR (MDRD) Non-Af 49 (>60) L 11/15/22 05:48 Glucose 150 mg/dL (65-99) H 11/15/22 05:48 Calcium 7.9 mg/dL (8.5-10.1) L 11/15/22 05:48 Blood Type O POSITIVE 11/15/22 06:45 Antibody Screen Negative 11/15/22 06:45 Crossmatch See Detail 11/15/22 06:45 Reason For Visit: BILATERAL ILIAC STENOSIS Discharge Diagnosis All Active Problems (Updated 11/16/22 @ 12:28 by Geraldo De La Fuente) Right femoral vein DVT (Acute) Iliac vein thrombosis, right (Acute) Iliac vein thrombosis, left (Acute) Compression of vein (Acute) Phlebitis and thrombophlebitis of left calf muscular vein (Acute) Plan of Treatment: Continue with present treatment and follow up plan. Pt is to keep follow up appointment as instructed and take medications as ordered. Discharge Medications Discharge Medications: No Known Drug Allergies Allergy (Mild, Verified 10/02/22 19:10) CONTINUE taking the following medications albuterol 90 mcg/actuation aerosol inhaler 90 mcg inhalation Q4HR 11/13/22 [History] aspirin 81 mg tablet,delayed release 81 mg PO DAILY 11/13/22 [History] carvedilol 6.25 mg tablet 2 tab PO BID 11/13/22 [History] cilostazol 100 mg tablet 1 tab PO BID 11/13/22 [History] furosemide 40 mg tablet 40 mg PO DAILY 11/13/22 [History] losartan 50 mg tablet 1 tab PO QDAY 11/13/22 [History] mirtazapine 15 mg tablet 1 tab PO HS 11/13/22 [History] pantoprazole 40 mg tablet,delayed release 1 tab PO BID 11/13/22 [History] rivaroxaban 15 mg tablet (Xarelto) 15 mg PO DAILY 11/13/22 [History] rosuvastatin 20 mg tablet 1 tab PO HS 11/13/22 [History] spironolactone 25 mg tablet 1 tab PO DAILY 11/13/22 [History] Discharge Disposition Assessment: see above Discharge Plan Discharge Plan Hospital Course: 72 year old female who several months ago had bilateral iliac vein compression and underwent sequential placement of bilateral iliac vein stents . One month ago had pain in their right leg and ultrasound of that time showed no evidence of DVT. 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 Lower extremity venous Doppler was obtained and showed thrombosis of the right femoral vein. The left femoral vein was okay . Patient was taken to the operative Suite on November 13 and had placement of bilateral EKOS catheters from the posterior tibial veins at the ankle. She underwent peripheral thrombolysis overnight and was returned to the operating Suite the next day. There was still some residual clot In the right iliac stent. Angio jet was performed of this and we balloon dilated the previously placed stent and added an additional stent proximal into the vena cava. The left side was treated with an additional stent placed distally into the common femoral vein. Post-procedure study showed good flow. The patient did receive one unit of blood post-procedure and hemoglobin is 9.3 at discharge. She will be discharged home on anil usual mediactions + Eliquis 5 mg BID and Percocet 5 mg tablets, one every six hours PRN pain. She will follow up with me in 1 to 2 weeks . Patient Disposition: 01 HOME, SELF-CARE Condition: Stable Health Concerns: Post Hospitalization: new medications and changes needed to prevent readmission or further decline. Pt educated and given instructions on all concerns. Plan of Treatment: Continue with present treatment and follow up plan. Pt is to keep follow up appointment as instructed and take medications as ordered. Assessment: see above Prescription drug monitoring program results: PDMP reviewed and no concerns i dentified Prescriptions: New Eliquis 5 mg tablet 5 mg PO BID Qty: 60 4RF oxycodone-acetaminophen [Percocet] 5-325 mg tablet 1 tab PO Q6H MDD 4 PRNQty: 30 0RF Continued losartan 50 mg tablet 1 tab PO QDAY furosemide 40 mg Tablet 40 mg PO DAILY carvedilol 6.25 mg tablet 2 tab PO BID aspirin 81 mg Tablet,Delayed Release (Dr/Ec) 81 mg PO DAILY spironolactone 25 mg tablet 1 tab PO DAILY pantoprazole 40 mg tablet,delayed release (DR/EC) 1 tab PO BID mirtazapine 15 mg tablet 1 tab PO HS albuterol 90 mcg/actuation Aerosol 90 mcg INHALATION Q4HR rosuvastatin 20 mg tablet 1 tab PO HS Discontinued cilostazol 100 mg tablet 1 tab PO BID Xarelto 15 mg Tablet 15 mg PO DAILY Rx Instructions: must administer with evening meal Follow ups/Referrals Follow ups/Referrals: HARVINDER PETERS [Primary Care Provider] - 1 WEEK Instructions Stand Alone Forms: Excuse From Work or School
[2022-11-16 13:59] VITALS: BP 110/62; PULSE 70; O2SAT 98
--- NOTE | 2022-11-22 01:12 | DR.OPNOTE ---
OP NOTE Pre-Op Diagnosis: B/L lower extremity iliac vein thrombosis, right femoral vein thrombosis Post-Op Diagnosis: same Procedure Date Date Of Procedure: 11/13/22 Procedure: PROCEDURE : B/L Lower extremity venograms including both iliac vein stents, intravascular ultrasound bilateral femoral and iliac veins , placement B/L lower extremity EKOS thrombolysis catheters for bilateral Lower extremity thrombolysis targeting the right femoral vein and both iliac vein stents NARRATIVE : The patient was transferred from the ICU where she had been treated with a Heparin drip. Heparin drip had been turned off one hour before the patient was brought to the operating room. She was placed in the supine position and both legs from the groins to the feet were prepped and draped in sterile fashion. The patient was given intravenous sedation supervised by myself. Time out for the procedure obtained. Ultrasound used to identify the right posterior tibial vein at the ankle and the skin overlying it infiltrated with 0.5% Marcaine . Ultrasound used to guide puncture of the right posterior tibial vein at the ankle and a 0.014 inch guide wire placed. The skin edge at the wire entrance to the skin was incised with a # 11 knife blade. A micro s goldy was placed over the wire into the posterior tibial vein and venogram carried out of the entire leg from this position demonstrating complete occlusion of the right femoral vein and the right iliac vein with present stent. The vena cava was open above the stent. The patient had been given a bolus of 5000 units of IV heparin. Ultrasound used to identify the left posterior tibial vein at the ankle and the skin overlying it infiltrated with 0.5% Marcaine . Ultrasound used to guide puncture of the left posterior tibial vein and a 0.014 inch guide wire placed . The skin overlying the guide wire was incised with a number 11 knife blade at the skin edge and a micro sheath placed over the guide wire into the left briquetter operator tibial vein. Venogram carried out through this sheath showed the left femoral vein be patent. The left ilac vein and stent were patent but there was significant compression of the common femoral vein below the level of the stent. At this point both micro sheaths were exchanged for 9 Fr vascular sheaths placed over the guide wires into the in the posterior tibial veins. [place] catheters and 0.035 inch [employer] glide wires were placed in both 9 [place] sheaths and taken all the way to the vena cava without difficulty. [place] catheters were removed and over the wires on both sides we placed EKOS thrombolytic catheters. Wires were removed and the inner core of both catheters placed. Both catheters were bolused with 3 mg of TPA. Both catheters had drips established of 1 mg of TPA per hour and normal saline for coolant in both catheters through separate ports were infused at 30 cc's per hour. Patient was given 500 mg of heparin per hour divided between the two catheters . Catheters were secured with dressings and sutures and the patient taking back to the ICU for continued acre. EKOS protocol to be followed for 12 hours of infusion in each catheter. Type of Anesthesia: Local (0.5% Marcaine) Anesthesia Comment: plus MAC Findings: right iliac vein stent with thrombosis, right femoral vein thrombosis, possible thrombosis left iliac vein stent vs compression/ stenosis left common femoral vein Type of Fluids Used:: Lactated Ringers Total Amount of Fluid Infused:: 750 cc Urine output: 500 c EBL: < 50 cc Complications:: none Needle/Sponge Count:: correct Disposition/Condition: Pt. tolerated procedure without difficulty. Taken back to the ICU in stable condition.
--- NOTE | 2022-11-23 12:27 | DR.OPNOTE ---
OP NOTE Pre-Op Diagnosis: Right iliac and femoral vein thrombosis, left iliac vein compression Post-Op Diagnosis: same Procedure Date Date Of Procedure: 11/14/22 Procedure: PROCEDURE: B/L ILIAC VENORAMS , STENTING LEFT EXTERNAL ILIAC VEIN/ LEFT COMMON FEMORAL VEIN, STENTING PROXIMAL RIGHT COMMON ILIAC VEIN PROCEDURE: This patient has undergone overnight thrombolysis of the iliac veins bilaterally and the right femoral vein after venograms had been obtained. This was done using the EKOS system. She was returned to the operating room and placed in the supine position. She was given intravenous sedation supervised by myself. Both legs were prepped and draped in sterile fashion. The EKOS catheters were removed from each sheath already placed in the posterior tibial veins at the ankle. Repeat venograms were carried out bilaterally showing no clot on the left side all the way to the vena cava. On the right side the right femoral venous thrombosis was resolved. There was some residual thrombosis inside the right iliac vein stent. Patient was given 5000 unis IV heparin. Attempt to place a guide wire on the left side was unsuccessful. I am unsure why. For this reason ultrasound was used to identify the left femoral vein in the mid thigh and the skin overlying it infiltrated with 0.5% Marcaine and ultrasound used to guide puncture of the femoral vein. A 0.012 inch guide wire placed. The skin overlying the wire incised on the skin edge with a number 11 knife blade and a 9 FR vascular sheath placed into the femoral vein. Because we were planning intervention of the right leg ,access from the posterior tibial vein was too far away, therefore ultrasound used to identify the right common femoral vein and the skin overlying it infiltrated with 0.5 % Marcaine. Ultrasound used to guide puncture of the right femoral vein and a 0.012 inch guide wire placed . Incision made over the guide wire at the skin edge with a # 11 knife and a micro sheath placed over the guide wire into the right femoral vein . The small wire exchanged for a 0.018 inch guide wire . On the right side we placed a [place] catheter over the wire all the way into the vena cava . Intravascular ultrasound used to study the right iliac vein stent and there still was some old thrombus there . Over this wire we placed the Anjiojet thrombectomy device and performed thrombectomy of the right iliac vein inside the stent .Once this was completed on the right side we placed a 16 mm by 90 mm Venous Wall stent proximal to the previous placed stent all the way into the vena cava and then balloon dilated it to 5 mm of Hg with a 14 mm x 60 mm [place] [employer] balloon. On left side over we placed the 0.018 inch wire and over it we placed a 16 mm by 90 mm Venous wall stent and then balloon dilated it with a 16 mm balloon 16 mm balloon. Post procedure venograms showed excellent results bilaterally as did intravascular ultrasound. All sheaths in both thighs and both ankles removed and pressure held for 10 minutes and dressings applied. Heydi returned to the ICU where she will continue on a heparin drip and will transition to po Eliquis. Type of Anesthesia: Local (0.5% Marcaine ) Anesthesia Comment: plus MAC Findings: After b/l LE EKOS thrombolysis overnight , all clot resolved right femoral vein , most clot resolved inside stent of right iliac vein, clot re solved left iliac vein stent, Angiojet thrombectomy performed right iliac vein stent and additional stent placed proximal right iliac vein extending into the vena cava, distal stent placed in left iliac vein extending into the left common femoral vein compression. Type of Fluids Used:: Lactated Ringers Total Amount of Fluid Infused:: 1300 cc Urine output: 300 cc EBL: 400 cc Hardware: 16 x90 mm Venous Wall stent placed distal left external iliac vein/ left common femoral vein 16x 60 mm Venous Wall stent placed proximal right common iliac vein Complications:: none Needle/Sponge Count:: correct Disposition/Condition: Pt. tolerated procedure without difficulty. Patient taken to ICU in stable condition.
== END 2022-11-16 13:50 | disposition home or self-care (01) | DRG 253 ==
LOC: ICU 22:38
PROVIDERS: ADMIT Surgery; ATTEND Surgery
DX: I82.422 Acute embolism and thrombosis of left iliac vein; I10 Essential (primary) hypertension; I42.9 Cardiomyopathy, unspecified; I82.411 Acute embolism and thrombosis of right femoral vein; I82.421 Acute embolism and thrombosis of right iliac vein; F41.8 Other specified anxiety disorders; I25.10 Atherosclerotic heart disease of native coronary artery without angina pectoris; J44.9 Chronic obstructive pulmonary disease, unspecified; K21.9 Gastro-esophageal reflux disease without esophagitis; I73.9 Peripheral vascular disease, unspecified; I87.1 Compression of vein